=== PATIENT | male | born 1960 | race African-American/Black ===

== ENCOUNTER 2016-08-07 01:05 | Inpatient (IN) | payer OTHER ==
--- NOTE | 2016-07-28 16:16 | History & Physical Pre-Op ---
General Information and HPI MD Statement: I have seen and personally examined SACHI BEATTY and documented this H&P. The patient is a 55 year old M who presents with a patient stated chief complaint of right sided low back pain, occasionally radiating up his spine. It radiates occasionally to his right posterior thigh and into his knee. Source of Information: patient, old records Exam Limitations: no limitations History of Present Illness: Sachi is a 55-year-old -Togolese male who complains of right sided low back pain, occasionally radiating up his spine. It radiates occasionally to his right posterior thigh and into his knee. He denies any numbness/tingling or weakness in his lower extremities. He does occasionally experience hesitancy of urination but does attribute this to a Perdomo catheter that was placed during his hospitalization for a left CVA in 2011. Sachi denies any left-sided symptoms thus far. He states that his back pain on the right side is far more predominant than his leg pain. He states his symptoms are worse with standing. He has tried 3 epidural steroid injections, physical therapy, and anti- inflammatory medications which have given him minimal and temporary symptom relief. Given the fact that Sachi has severe degenerative disc disease at L5- S1 with facet arthrosis and foraminal stenosis and failure to respond to conservative measures, he wants nothing more to do with nonsurgical treatment. He has been consented for a posterior lumbar decompression fusion at L5-S1 with instrumentation and iliac crest bone grafting for 08/07/2016. Allergies/Medications Allergies: Coded Allergies: tomato (08/06/16) NSAIDS (Non-Steroidal Anti-Inflamma (Intermediate, GI upset 07/28/16) Home Med list Albuterol Sulfate (Ventolin Hfa) 90 MCG HFA.AER.AD 2 PUFF PO EVERY 4 HRS PRN ASTHMA (Reported) Aspirin (Aspirin*) 325 MG TABLET 1 TAB PO DAILY S/P [facility] (Reported) Esomeprazole (Nexium) 40 MG CAPSULE.DR 1 TAB PO DAILY GERD (Reported) Temazepam 30 MG CAPSULE 1 TAB PO NIGHTLY PRN SLEEP (Reported) Zolpidem Tartrate 10 MG TABLET 1 TAB PO NIGHTLY PRN SLEEP (Reported) Compliance With Home Meds: GOOD Past History Medical History Blood Transfusion Hx: No Neurological: CVA EENT: cyst on back of tongue Cardiovascular: NONE Respiratory: NONE Gastrointestinal: GERD Hepatic: NONE Renal: benign prost hyperplasia Musculoskeletal: chronic back pain, disk herniation, degen joint disease, osteoarthritis, sciatica, spinal stenosis Psychiatric: insomnia Endocrine: NONE Blood Disorders: NONE Cancer(s): NONE HEEL SHAPER/Reproductive: NONE Surgical History Pertinent Surgical History: appendectomy, s/p hemorrhoidectomy Past Family/Social History Family History Relations & Conditions if any FATHER (CVAMI). . MOTHER (CVABlood clot). . Psychosocial History Where Do You Live? Home Who Do You Live With? spouse Primary Language: Mosotho Smoking Status: Former Smoker (quit 5 years ago) ETOH Use: 2 six packs/week Illicit Drug Use: denies illicit drug use Employment History Employment: Employed Profession/Employer: [employer] Review of Systems Review of Systems Constitutional: Denies: no symptoms, see HPI. EENTM: Denies: no symptoms, see HPI. Cardiovascular: Denies: no symptoms, see HPI. Respiratory: Denies: no symptoms, see HPI. GI: Denies: no symptoms, see HPI. Genitourinary: Reports: hesitation. Musculoskeletal: Reports: see HPI, back pain, muscle pain, muscle stiffness. Skin: Denies: no symptoms, see HPI. Neurological/Psychological: Reports: pre-existing deficit, weakness (left hemiplegia). Hematologic/Endocrine: Denies: no symptoms, see HPI. Immunologic/Allergic: Denies: no symptoms, see HPI. All Other Systems: Reviewed and Negative Medication List Current Psychiatric Med(s): aspirin 325 mg daily Nexium 40 mg daily Zopiclone 7.5 mg daily at bedtime Vitamin C 500 mg daily Cod liver oil daily Exam & Diagnostic Data Physical Exam: weight: 180 pounds Height: 5 feet 8 inches Physical Exam General Appearance Alert, Oriented X3, Cooperative, No Acute Distress Skin No Rashes, No Breakdown, No Significant Lesion HEENT Atraumatic, PERRLA, EOMI, Mucous Membr. moist/pink Neck Supple, No JVD, No thryomegaly, +2 Carotid Pulse wo Bruit Lymphatic Cervical nl Cardiovascular Regular Rate, Normal S1, Normal S2, No Murmurs Lungs Clear to Auscultation Abdomen Normal Bowel Sounds, Soft, No Tenderness, No Masses Neurological Normal Speech, Normal Tone, Sensation Intact, Reflexes 2+, +4/5 LEFT LOWER EXTREMITY STRENGTH, + SLR ON RIGHT, SLIGHT LIMP WITH AMBULATION Extremities No Clubbing, No Cyanosis, No Edema, Normal Pulses, No Tenderness/ Swelling Vascular Normal Pulses, Pulses Symmetrical Assessment/Plan Assessment/Plan: assessment: 1. Degenerative disc disease at L5-S1 with facet arthrosis and foraminal stenosis. 2. History of CVA with left hemiplegia in 2011 3. GERD 4. Insomnia 5. Status post appendectomy 6. Status post hemorrhoidectomy 7. BPH 8. Cyst on back of tongue. Plan: Sachi is scheduled for a posterior lumbar decompression and fusion at L5 -S1 with instrumentation and iliac crest bone grafting for 08/07/2016. We discussed the pre-and postoperative course, follow-up care, and anticipated recovery. We also discussed the risks of surgery not to exclude , paralysis, infection, bleeding, continued pain, failure of the surgery, need for future surgery, DVT, vascular injury, CSF leak, and given these risks, he still wishes to proceed. We discussed the fact that there is no guarantee for the success or future success of the surgery but that 100% attempt will be made for full recovery. Any changes in this patient's plan is based on this patient's outpatient clinical presentation. As Ranked By This Provider Problem List: 1. GERD (gastroesophageal reflux disease) 2. BPH (benign prostatic hyperplasia) Attending MD Review Statement Attending Statement Attending MD Statement: examined this patient, discuss w/resident/PA/DIETETIC TECHNICIAN REGISTERED, agreed w/resident/PA/DIETETIC TECHNICIAN REGISTERED, reviewed images
[~2016-08-07] VITALS: Ht 172.7 cm; Wt 85.3 kg
[~2016-08-07 01:05] MED LIST: ASPIRIN325 M2 PO; NEXIUM40 M1 PO; TEMAZEPAM30 M1 PO; VENTOLIN HFA18 GM PO; ZOLPIDEM TARTRA10 M1 PO
--- NOTE | 2016-08-07 11:07 | Operative Report ---
Operative/Inv Procedure Report Surgery Date: 08/07/16 Name of Procedure: Posterior lumbosacral laminectomies decompression interdiscal cage placement L5- S1 pedicle screw placement bilateral L5-S1 lateral intertransverse process fusion autologous morselized bone graft L5-S1 harvesting of morselized iliac crest bone graft right posterior iliac crest Reconstruction of donor site with Master graft use of fluoroscopy. Pre-Operative Diagnosis: Degenerative disc disease facet disease and foraminal stenosis L5-S1 Post-Operative Diagnosis: Same Estimated Blood Loss: 150 Surgeon/Front Maker: JOSH EDEN,FREDY Mosher M.D. Anesthesia: general endotracheal tube Monitors: Electric nerve monitoring Operative/Procedure Note Note: After adequate general anesthesia the patient was placed in the prone position the back was sterilely prepped and draped along with iliac crest. An incision was made in the midline carried down bilaterally over the dorsal elements at the lumbosacral junction. The laminae were thinned with the bur there was severe overhang of the facets consistent with DJD at L5-S1. Laminectomies were performed bilaterally at L5-S1 the discectomy was performed after sharp venotomy and decompression of the disc space with removal of disc material using the curettes and the pituitary rongeur. The endplates were decorticated with the instrumentation in preparation for cage placement on the left side. An incision was made over the right posterior iliac crest and a subperiosteal dissection was carried laterally the Alla retractor was placed well away from the foramen. The curettes were used to collect cortical cancellus and cancellus morcellized bone. The wound was irrigated copiously packed with Master graft covered with Gelfoam and closed in layers with absorbable suture with gomez in the skin. The midline retractors were replaced and the wound was copiously irrigated corticotomies were created and L5 pedicles bilaterally and S1 pedicles bilaterally. The cage was packed with morselized bone graft and 8 mm cage was tamped into position and the L5-S1 disc space. The pedicles were identified with the probe tapped checked with a ball tip probe and pedicle screws were applied and L4 pedicles. The construct was checked in AP and lateral plane. Rods were placed compression applied and nuts were locked. The lateral intertransverse process region and facet joints were decorticated with the high- speed bur and pencil point bur. Bone graft was packed from L5-S1 as well as over the facet joints beneath the tube rods bilaterally. The wound was copiously irrigated Gelfoam was laid over the laminotomy site and a closure of the lumbodorsal fashion subcutaneous tissue was performed with absorbable suture. Skin was closed with gomez. After placement of sterile dressings the patient was log rolled off the operating table and taken to the recovery room on a stretcher.
--- NOTE | 2016-08-07 11:43 | RADIOLOGY REPORT ---
EXAMINATION: XR LUMBOSACRAL SPINE CLINICAL INFORMATION: Lumbar laminectomy L5-S1 with fusion in OR. COMPARISON: None TECHNIQUE: Fluoroscopic equipment was dedicated to the operating room for the performance of lumbar laminectomy at L5-S1 with fusion. 2 spot films of the lower lumbar spine in the frontal and lateral projection were obtained. FLUOROSCOPY TIME: 0.2 minutes. FINDINGS: Transpedicular screws are seen at the L5-S1 level. Near-anatomic alignment is seen. Multiple sponges with radiopaque markers are seen overlying the posterior soft tissues of the lower lumbar spine. IMPRESSION: L5-S1 lumbar spine laminectomy and fusion.
[2016-08-07 12:17] LABS: ABSOLUTE BASOPHIL COUNT 0 /CUMM (0.0-0.2); ABSOLUTE EOSINOPHIL COUNT 0.1 /CUMM (0.0-0.7); ABSOLUTE GRANULOCYTE CT 8.9 /CUMM (1.4-6.5); ABSOLUTE LYMPH COUNT 1.8 /CUMM (1.2-3.4); ABSOLUTE MONOCYTE COUNT 0.5 /CUMM (0.10-0.60); BASOPHIL % 0.2 % (0.0-2.0); EOSINOPHIL % 0.5 % (0-5); MEAN CORPUSCULAR HGB CONC 34.2 G/DL (33.0-37.0); MEAN CORPUSCULAR VOLUME 96.3 FL (80.0-94.0); MEAN PLATELET VOLUME 8.1 FL (7.4-10.4); PLATELET COUNT 213 /CUMM (130-400); RBC DISTRIBUTION WIDTH 12.6 % (11.5-14.5); RED BLOOD CELL CT 3.78 /CUMM (4.70-6.10)
[2016-08-07] MEDS ORDERED: TYLENOL325 M1 PO (12:23)
[2016-08-07] MEDS ORDERED: CALCIUM CARBON500 M2 PO (12:24)
[2016-08-07] MEDS ORDERED: BISAC-EVAC10 M1 PR (12:24)
[2016-08-07] MEDS ORDERED: DOCUSATE SODIU100 M3 PO (12:24)
[2016-08-07 12:25] LABS: GRANULOCYTE % 79.2 % (42.2-75.2); HEMATOCRIT 36.4 % (42-52); WHITE BLOOD CELL COUNT 11.2 /CUMM (4.8-10.8)
[2016-08-07] MEDS ORDERED: VITAMIN D31000 UNI2 PO (12:25)
[2016-08-07] MEDS ORDERED: MILK OF MA400 MG/52 PO (12:25)
[2016-08-07] MEDS ORDERED: ONE DAILY MULT1 EAC2 PO (12:26)
[2016-08-07] MEDS ORDERED: PERCOCET 5-3251 EACH PO (12:27)
--- NOTE | 2016-08-07 12:28 | Patient Discharge Instructions ---
Acute Coronary Syndrome Inclusion Criteria At DC or during hospital stay patient has or had the following: ACS DIAGNOSIS No Discharge Core Measures Meds if any: Prescribed or Continued at Discharge Meds if any: NOT Prescribed or Continued at Discharge Congestive Heart Failure Inclusion Criteria At DC or during hospital stay patient has or had the following: CHF DIAGNOSIS No Discharge Core Measures Meds if any: Prescribed or Continued at Discharge Meds if any: NOT Prescribed or Continued at Discharge Cerebrovascular accident Inclusion Criteria At DC or during hospital stay patient has or had the following: CVA/TIA Diagnosis No Discharge Core Measures Meds if any: Prescribed or Continued at Discharge Meds if any: NOT Prescribed or Continued at Discharge Venous thromboembolism Inclusion Criteria VTE Diagnosis No VTE Type NONE VTE Confirmed by (Test) NONE Discharge Core Measures - Per Current guidelines, there needs to be overlap - treatment for the first 5 days of Warfarin therapy. - If discharged on Warfarin prior to 5 days of - overlap therapy, the patient will need to be - assessed for post discharge needs including - *Post discharge parental anticoagulation - *Warfarin and/or parental anticoagulation education - *Follow up date to check INR post discharge At least 5 days overlap therapy as Inpatient No Meds if any: Prescribed or Continued at Discharge Note: Overlap Therapy is Warfarin and Anticoagulant Meds if any: NOT Prescribed or Continued at Discharge
[2016-08-07 14:30] VITALS: BP 110/68
--- NOTE | 2016-08-07 14:35 | PN- Orthopedic ---
Subjective Subjective: The patient was seen this afternoon postoperatively. He reports that his pain is under adequate control and only complains that his right cheek is sore. He denies any numbness, tingling, or weakness in his extremities. He has other complaints at the current time and denies any chest pain or difficulty breathing Objective Vital Signs and I&Os Intake & Output 08/07 1600 08/07 0800 08/07 0000 08/06 1600 08/06 0800 08/06 0000 Intake Total Output Total Balance Patient 188 lb Weight Vital signs: Blood pressure 110/60 pulse 65, temperature 90.8, O2 saturation 96% on room air I's and O's: Y5 100 ML's in of lactated Ringer's/100 out of urine Physical Exam: Gen.: Alert and obvious distress Skin: Warm and dry Cardiac: S1-S2 regular Pulmonary: Bilateral breath sounds are equal and decreased at bases Back: Surgical dressing is clean, dry, and intact. Extremities: Patient moves all 4 extremities with equal strength. Gross motor and sensory are intact. Bilateral lower extremities are warm without calf tenderness or significant edema. Assessment/Plan Assessment/Plan Assessment: 55-year-old male status post lumbar posterior stabilization and fusion L5 through S1 with iliac crest bone graft. Postoperatively patient is progressing as expected he has a nonfocal exam and his pain is under adequate control Plan: Out of bed with physical therapy Advance diet as tolerated Continue current pain regiment Strict I's and O's GI and DVT prophylaxis Resume home medications Core Measures/Miscellaneous Venous Thromboembolism VTE Risk Factors: Age > 40, Surgery VTE Contraindications: Severe Spine Trauma x4 wk VTE Prophylaxis Ordered Inpt: Mechanical (ALPS/TEDS) No Pharm VTE Prophylaxis D/T: Surgical Contraindication VTE Diagnosis: No Beta Sabino Is Beta Sabino a Home Med? No Antibiotics Is Patient on Antibiotics? Yes If Yes: prophylaxis
[2016-08-07 19:01] VITALS: BP 140/96
[2016-08-07 22:57] VITALS: BP 106/68
[2016-08-08 06:36] VITALS: BP 120/80
[2016-08-08 09:01] LABS: ABSOLUTE BASOPHIL COUNT 0 /CUMM (0.0-0.2); ABSOLUTE EOSINOPHIL COUNT 0 /CUMM (0.0-0.7); ABSOLUTE GRANULOCYTE CT 6.6 /CUMM (1.4-6.5); ABSOLUTE LYMPH COUNT 1.8 /CUMM (1.2-3.4); BASOPHIL % 0.2 % (0.0-2.0); EOSINOPHIL % 0.1 % (0-5); GRANULOCYTE % 69.9 % (42.2-75.2); HEMATOCRIT 35.6 % (42-52); MEAN CORPUSCULAR HGB 32.6 PG (27.0-31.0); MEAN CORPUSCULAR HGB CONC 33.6 G/DL (33.0-37.0); MEAN CORPUSCULAR VOLUME 97.1 FL (80.0-94.0); MEAN PLATELET VOLUME 8.9 FL (7.4-10.4); PLATELET COUNT 217 /CUMM (130-400); RBC DISTRIBUTION WIDTH 12.6 % (11.5-14.5); RED BLOOD CELL CT 3.67 /CUMM (4.70-6.10); WHITE BLOOD CELL COUNT 9.4 /CUMM (4.8-10.8)
--- NOTE | 2016-08-08 09:11 | PN- Orthopedic ---
Subjective Subjective: Patient reporting overnight insomnia as well as acid reflux. He feels that his pain has been controlled well. He has been OOB to void and on last two attempts was able to void without difficulty. He denies nausea but states that he did regurgitate his acid overnight. He denies chest pain, shortness of breath and difficulty breathing. Objective Vital Signs and I&Os Vital Signs Date Time Temp Pulse Resp B/P Pulse O2 O2 Flow FiO2 Ox Delivery Rate 08/08 0902 Room Air Room Air 08/08 0636 98.6 82 20 120/80 92 Room Air 08/07 2257 98.3 88 18 106/68 94 Room Air 08/07 1901 97.7 79 20 140/96 94 Room Air 08/07 1430 98.0 73 18 110/68 95 Room Air Intake & Output 08/08 1600 08/08 0800 08/08 0000 08/07 1600 08/07 0800 08/07 0000 Intake Total 920 1550 Output Total 1200 800 Balance -280 750 Intake, IV 800 800 Intake, Oral 120 750 Output, Urine 1200 800 Patient 188 lb Weight Physical Exam: General: Alert and oriented x3, no acute distress Cardiac: RRR, s1s2 Pulm: B CTA Abdomen: non-tender, non-distended Extremities: Moves all extremities, distal sensation intact. Motor 5/5 in plantar and dorsi flexion bilaterally. Skin warm and well perfused. DP pulses palpable. Bilateral calves soft and non-tender Surgical site: Low back: Dressing dry and intact. No surrounding erythema or swelling. No drain. Assessment/Plan Assessment/Plan This is a 55 year old male, POD 1, s/p L5-S1 martini/fusion with right sided posterio icbg, doing well -Change prilosec to nexium, patient states that it works better for his GERD -Change ambien to restoril -Continue current pain regimen -OOB with PT today -Home dose of ASA to start today -ALPS in while in bed -Diet as tolerated Core Measures/Miscellaneous Venous Thromboembolism VTE Risk Factors: Age > 40, Surgery VTE Contraindications: Severe Spine Trauma x4 wk VTE Prophylaxis Ordered Inpt: Mechanical (ALPS/TEDS) No Pharm VTE Prophylaxis D/T: Surgical Contraindication VTE Diagnosis: No Beta Sabino Is Beta Sabino a Home Med? No Antibiotics Is Patient on Antibiotics? Yes If Yes: prophylaxis
[2016-08-08 14:57] VITALS: BP 128/82
--- NOTE | 2016-08-08 19:53 | PN- Orthopedic ---
Subjective Subjective: Patient c/o nausea and vomiting. He has expected postop incisional pain. No leg pain, numbness, or new weakness. He is ambulating without difficulty. + Voiding. No CP, SOB, or fever/chills. Hgb: 12, HCT: 35.6 Review of Systems: Remarkable for the above complaints. Objective Vital Signs and I&Os Vital Signs Date Time Temp Pulse Resp B/P Pulse O2 O2 Flow FiO2 Ox Delivery Rate 08/08 1457 98.1 97 18 128/82 92 Room Air 08/08 0902 Room Air Room Air 08/08 0636 98.6 82 20 120/80 92 Room Air 08/07 2257 98.3 88 18 106/68 94 Room Air Intake & Output 08/08 1600 08/08 0800 08/08 0000 08/07 1600 08/07 0800 08/07 0000 Intake Total 876 256 3688 Output Total 475 1200 800 Balance 425 -280 750 Intake, IV 300 800 800 Intake, Oral 600 120 750 Output, Urine 475 1200 800 Patient 188 lb Weight Physical Exam General Appearance: well developed/nourished, alert, awake, mild distress Neck: normal inspection Respiratory: normal breath sounds, no respiratory distress Cardiovascular: regular rate/rhythm Peripheral Pulses: 2+ tibialis posterior (R), 2+ tibialis posterior (L), 2+ dorsalis pedis (R), 2+ dorsalis pedis (L) Abdomen: normal bowel sounds, soft, non-tender Back: Incision C/D/I Dressings changed. Extremities: normal capillary refill, Neurovascularly intact with no new or worsening gross motor or sensory loss. Neurologic/Psychiatric: no motor/sensory deficits, awake, alert, oriented x 3 Reflexes: 2+: knee (R), knee (L), ankle (R), ankle (L). Skin: intact, normal color Assessment/Plan Assessment/Plan Assessment: s/p PLDF L5-S1 with instr./ICBG with postop nausea Plan: Hold Percocet and continue with Morphine as needed for pain. Continue with anti-emetics. Ambulate with PT/Nursing Will follow-up in am to determine discharge plan. Continue IVF until nausea subsides Problem List: 1. BPH (benign prostatic hyperplasia) 2. GERD (gastroesophageal reflux disease) Core Measures/Miscellaneous Venous Thromboembolism VTE Risk Factors: Age > 40, Surgery VTE Contraindications: Severe Spine Trauma x4 wk VTE Prophylaxis Ordered Inpt: Mechanical (ALPS/TEDS) No Pharm VTE Prophylaxis D/T: Surgical Contraindication VTE Diagnosis: No Beta Sabino Is Beta Sabino a Home Med? No Antibiotics Is Patient on Antibiotics? Yes If Yes: prophylaxis Attending MD Review Statement Attending Statement Attending MD Statement: examined this patient, discuss w/resident/PA/INVENTORY AND PRICING ASSOCIATE, agreed w/resident/PA/INVENTORY AND PRICING ASSOCIATE
[2016-08-08 22:46] VITALS: BP 124/74
--- NOTE | 2016-08-09 09:02 | PN- Orthopedic ---
Subjective Subjective: POD #2 s/p lumbar laminectomy L5-S1 with ICBG. Complains of continued pain down right leg (had yesterday as well). Tolerating a regular diet without nausea or vomiting. Denies CP/SOB, F/C. Ambulating with assistance. Voiding spontaneously. Objective Vital Signs and I&Os Vital Signs Date Time Temp Pulse Resp B/P Pulse O2 O2 Flow FiO2 Ox Delivery Rate 08/08 2246 99.3 108 20 124/74 92 Room Air 08/08 1457 98.1 97 18 128/82 92 Room Air 08/08 0902 Room Air Room Air Intake & Output 02/ 1600 02 0800 08/09 0000 08/08 1600 08/08 0800 08/08 0000 Intake Total 120 120 530 342 5905 Output Total 475 1200 800 Balance 120 120 425 -280 750 Intake, IV 300 800 800 Intake, Oral 120 120 600 120 750 Output, Urine 475 1200 800 Physical Exam: Gen: AAox3 in NAD Cor: S1+S2+ Lungs: CTA dick Abd: soft, NT, ND, +BSx4 Back: dressings removed. Incisions x2 C/D/I with gomez. No surrounding erythema or drainage. Mild amount of ecchymosis noted to right diagonal incision. Ext: Palpable DP pulses dick. Feet warm. Sensation/motor exam grossly intact. Results Last 48 Hours of Labs: Laboratory Tests 08/08 01/ 0805 1210 Hematology CBC w Diff NO MAN DIFF REQ NO MAN DIFF REQ WBC (4.8 - 10.8 /CUMM) 9.4 11.2 H RBC (4.70 - 6.10 /CUMM) 3.67 L 3.78 L Hgb (14.0 - 18.0 G/DL) 12.0 L 12.5 L Hct (42 - 52 %) 35.6 L 36.4 L MCV (80.0 - 94.0 FL) 97.1 H 96.3 H MCH (27.0 - 31.0 PG) 32.6 H 33.0 H RDW (11.5 - 14.5 %) 12.6 12.6 Plt Count (130 - 400 /CUMM) 217 213 MPV (7.4 - 10.4 FL) 8.9 8.1 Gran % (42.2 - 75.2 %) 69.9 79.2 H Lymphocytes % (20.5 - 51.1 %) 18.9 L 16.0 L Monocytes % (1.7 - 9.3 %) 10.9 H 4.1 Eosinophils % (0 - 5 %) 0.1 0.5 Basophils % (0.0 - 2.0 %) 0.2 0.2 Absolute Granulocytes (1.4 - 6.5 /CUMM) 6.6 H 8.9 H Absolute Lymphocytes (1.2 - 3.4 /CUMM) 1.8 1.8 Absolute Monocytes (0.10 - 0.60 /CUMM) 1.0 H 0.5 Absolute Eosinophils (0.0 - 0.7 /CUMM) 0 0.1 Absolute Basophils (0.0 - 0.2 /CUMM) 0 0 PUBS MCHC (33.0 - 37.0 G/DL) 33.6 34.2 02/16 UNK Urines Urine Color (YEL,AMB,STR) YEL Urine Clarity (CLEAR) CLEAR Urine pH (5.0 - 8.0) 6.0 Ur Specific [place] (1.001 - 1.035) 1.015 Urine Protein (NEG,<30 MG/DL) NEG Urine Ketones (NEG) NEG Urine Nitrite (NEG) NEG Urine Bilirubin (NEG) NEG Urine Urobilinogen (0.1 - 1.0 EU/dl) 1.0 Ur Leukocyte Esterase (NEG) NEG Ur Microscopic EXAM NOT REQUIRED Urine Hemoglobin (NEG) NEG Urine Glucose (N MG/DL) NEG Assessment/Plan Assessment/Plan A: POD #2 s/p lumbar laminectomy L5-S1; AVSS. Plan: Daily dry dressing changes to lumbar incisions. Continue pain control, although may need to change to Dilaudid. D/C morphine. Keep with PO pain medications today. OOB and ambulate as tolerated. Likely discharge later today vs tomorrow morning. Core Measures/Miscellaneous Venous Thromboembolism VTE Risk Factors: Age > 40, Surgery VTE Contraindications: Severe Spine Trauma x4 wk VTE Prophylaxis Ordered Inpt: Mechanical (ALPS/TEDS) No Pharm VTE Prophylaxis D/T: Surgical Contraindication VTE Diagnosis: No Beta Sabino Is Beta Sabino a Home Med? No Antibiotics Is Patient on Antibiotics? Yes If Yes: prophylaxis
[2016-08-09 09:27] VITALS: BP 124/74
--- NOTE | 2016-08-09 11:11 | Surg Short-stay <48hrs Dis Sum ---
See Addendum Visit Information Visit Dates Admission Date: 08/07/16 Discharge Date: 08/09/16 Surgical Short Stay DC Summary Admission Diagnosis: Degenerative disc disease facet disease and foraminal stenosis L5-S1 Final Diagnosis: same Procedure(s): Posterior lumbosacral laminectomies decompression interdiscal cage placement L5- S1 pedicle screw placement bilateral L5-S1 lateral intertransverse process fusion autologous morselized bone graft L5-S1 harvesting of morselized iliac crest bone graft right posterior iliac crest Reconstruction of donor site with Master graft Summary/Significant Findings: Mr. Schumacher is a 55 year old male who was admitted on 08/07/16 and underwent a posterior lumbar decompression with cage L5-S1. He did well post operatively, and his pain was well controlled. He was able to void spontaneously and tolerate a diet. On POD #2, he was stable for discharge with outpatient follow- up with Dr. Martín Herrera. Condition at Discharge: stable Discharge Disposition: home or self care Discharge instructions provided to patient/family: Yes Post discharge follow-up plan: Dr. Herrera= patient to call for follow up appointment at earliest convenience
--- NOTE | 2016-08-09 18:09 | NUR ---
1745- PT COMPLAINING HE HAS NOT HAD A BM SINCE 08/05/16. COLACE, SUPPOSITORY, FLEET ENEMA AND MAGNESIUM CITRATE GIVEN OVER THE COURSE OF THE DAY. PT PASSING FLATUS, BUT STATES HE HAS NOT HAD A BM. SURG MERON CHRIS KEPT AWARE OF ABOVE THROUGHOUT THE DAY. DISCHARGE ORDER IN PLACE, PENDING BM SINCE PT DOES NOT WANT TO BE DISCHARGED UNTIL HE HAS A BM. SURG MERON CHRIS TO ASSESS PT AT BEDSIDE. 1800- SURG MERON CHRIS TO ORDER 2 ADDITIONAL SUPPOSITORIES, TO BE GIVEN AT THE SAME TIME.
== END 2016-08-09 19:40 | DRG 460 ==
LOC: ENRESERVDT → ENRESERVTM → ENPENDDIS 01:05 → SDA 01:05 → 2NA 13:56
PROVIDERS: Orthopaedic Surgery Orthopaedic Surgery of the Spine; ADMIT Orthopaedic Surgery Orthopaedic Surgery of the Spine
PROC: 0SB40ZZ Excision of Lumbosacral Disc, Open Approach (ICD-10-PCS; principal; 2016-08-07)
PROC: 0SG30AJ Fusion of Lumbosacral Joint with Interbody Fusion Device, Posterior Approach, Anterior Column, Open Approach (ICD-10-PCS; 2016-08-07)
PROC: 0QB00ZZ Excision of Lumbar Vertebra, Open Approach (ICD-10-PCS; 2016-08-07)
DX: M48.07 Spinal stenosis, lumbosacral region (principal); M51.37 Other intervertebral disc degeneration, lumbosacral region
CPT/HCPCS: 2NAP; 36415; 72100; 81003; 97116-GO; 97161-GP; 97530-GO; C1713; J0131; J0690; J2405; J3250; J3490; J7120

== ENCOUNTER 2016-08-13 05:06 | Emergency (ER) | payer OTHER ==
[~2016-08-13] VITALS: Ht 172.7 cm; Wt 85.3 kg
[~2016-08-13 05:06] MED LIST changes: +BISAC-EVAC10 M1 PR; +CALCIUM CARBON500 M2 PO; +DOCUSATE SODIU100 M3 PO; +MILK OF MA400 MG/52 PO; +ONE DAILY MULT1 EAC2 PO; +PERCOCET 5-3251 EACH PO; +TYLENOL325 M1 PO; +VITAMIN D31000 UNI2 PO
[2016-08-13 05:21] VITALS: BP 144/85
--- NOTE | 2016-08-13 05:52 | ED GI/GU/ABDOMINAL COMPLAINT ---
History of Present Illness General Chief Complaint: Male Genitourinary Problems Stated Complaint: URINARY RETENSION S/P BACK SURGERY LAST WK Source: patient Exam Limitations: no limitations Vital Signs & Intake/Output Vital Signs & Intake/Output Vital Signs Date Time Temp Pulse Resp B/P Pulse O2 O2 Flow FiO2 Ox Delivery Rate 08/13 0551 98 Room Air 08/13 520 96.8 77 18 144/85 96 Room Air Allergies Coded Allergies: tomato (08/06/16) NSAIDS (Non-Steroidal Anti-Inflamma (Intermediate, GI upset 07/28/16) Reconcile Medications Acetaminophen (Tylenol) 325 MG TABLET 650 MG PO Q4P PRN TEMP > 101.5 Albuterol Sulfate (Ventolin Hfa) 90 MCG HFA.AER.AD 2 PUFF PO EVERY 4 HRS PRN ASTHMA (Reported) Aspirin (Aspirin*) 325 MG TABLET 1 TAB PO DAILY S/P [facility] (Reported) Bisacodyl (Bisac-Evac) 10 MG SUPP.RECT 10 MG [place] DAILY NEEDED PRN CONSTIPATION Calcium Carbonate 500 MG CALCIUM (1,250 MG) TABLET 600 MG PO BID [facility] Cholecalciferol (Vitamin D3) 1,000 UNIT TABLET 1,000 IU PO DAILY [facility] Docusate Sodium 100 MG CAPSULE 100 MG PO TID CONSTIPATION Esomeprazole (Nexium) 40 MG CAPSULE.DR 1 TAB PO DAILY GERD (Reported) Magnesium Hydroxide (Milk Of Magnesia) 400 MG/5 ML ORAL.SUSP 30 ML PO AT BEDTIME PRN CONSTIPATION Multivitamin (One Daily Multivitamin) 1 EACH TABLET 1 TAB PO DAILY [facility] Oxycodone HCl/Acetaminophen (Percocet 5-325 MG Tablet) 5 MG-325 MG TABLET 2 TAB PO Q4P PRN PAIN SCALE 4-6 (MODERATE) 1-2 TABS PO Q 4-6 HRS PRN PAIN Temazepam 30 MG CAPSULE 1 TAB PO NIGHTLY PRN SLEEP (Reported) Zolpidem Tartrate 10 MG TABLET 1 TAB PO NIGHTLY PRN SLEEP (Reported) Triage Note: PT TO ED COMPLAINING OF INABILITY TO URINATE SINCE 10PM LAST NIGHT. PT STATES THAT HE HAD BACK SURGEY LAST THURSDAY. PT STATES HE RECENTLY HAD PAIN MEDICATIONS CHANGED AND IS CURRENTLY TAKING HYDROMORPONE FOR PAIN. PT DENIES PAIN. PT ALERT, ORIENTED AND DIAPHORETIC IN TRIAGE. Triage Nurses Notes Reviewed? yes HPI: Patient presents for evaluation of acute urinary retention. Patient states the last time he was able to empty his bladder was about 10:00 last night. Patient is taking hydromorphone as result of back surgery. Patient denies any associated fever or chills. Patient has had trouble urinating in the past secondary to an enlarged prostate. He was experiencing a severe suprapubic abdominal pressure. Past History Travel History Traveled to [place] past 21 day No Medical History Any Pertinent Medical History? 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 . MOTHER (CVABlood clot). . Hx Contributory? No Review of Systems Review of Systems Constitutional: Reports: no symptoms. EENTM: Reports: no symptoms. Respiratory: Reports: no symptoms. Cardiovascular: Reports: no symptoms. GI: Reports: no symptoms. Genitourinary: Reports: see HPI. Musculoskeletal: Reports: no symptoms. Skin: Reports: no symptoms. Neurological/Psychological: Reports: no symptoms. Hematologic/Endocrine: Reports: no symptoms. Immunologic/Allergic: Reports: no symptoms. All Other Systems: Reviewed and Negative Physical Exam Physical Exam Gastrointestinal: see below Comments: Gen.: Well-nourished, well-developed, no acute respiratory distress. Head: Normocephalic, atraumatic. Eyes: Normal inspection bilaterally Ears: Normal inspection bilaterally Nose: Normal inspection Throat/mouth : Moist mucosa Neck: Supple, full range of motion, no goiter Heart: Regular rate and rhythm, no murmurs rubs or gallops Lungs: Clear to auscultation bilaterally with normal air entry Chest: Nontender Back: Decreased range of motion secondary to surgery Abdomen: Soft, suprapubic abdominal tenderness without rebound or guarding, nondistended, normal bowel sounds Extremities: Normal range of motion grossly, equal radial pulses, no cyanosis clubbing or edema Neurologic: Cranial nerves grossly intact, speech is clear Skin: warm and dry Psychiatric: Calm, cooperative, no apparent delusions or hallucinations Core Measures ACS in differential dx? No Severe Sepsis Present: No Septic Shock Present: No Progress Differential Diagnosis: urinary retention Plan of Care: Orders Procedure Date/time Status Perdomo, Insertion/Removal/Asses 08/13 543 Active URINALYSIS 08/13 543 Active Laboratory Tests 08/13/16 0545: Urine Color Pending, Urine Clarity Pending, Urine pH Pending, Ur Specific [place] Pending, Urine Protein Pending, Urine Ketones Pending, Urine Nitrite Pending, Urine Bilirubin Pending, Urine Urobilinogen Pending, Ur Leukocyte Esterase Pending, Ur Microscopic Pending, Urine Hemoglobin Pending, Urine Glucose Pending Initial ED EKG: none Comments: 08/13/2016 6:06:11 AM Shubham is feeling much better after the placement of the Perdomo catheter. He wishes to have it removed as he will be flying back to his home in [facility]. I advised him that he might retain urine again. He understands this but does not wish to have the catheter stay in place. He denies back pain at this time. He denies lower extremity weakness or saddle paresthesias. He feels that it was the medications that cause him to retain urine. At this point there seems to be no indication of a postoperative complication. Departure Departure Disposition: HOME OR SELF CARE Condition: Stable Clinical Impression Primary Impression: Acute urinary retention Referrals: UNKNOWN (PCP/Family) Additional Instructions: Follow-up with your primary care doctor upon return to your home. Return if any concerns or sudden worsening. Departure Forms: Customer Survey General Discharge Information
== END 2016-08-13 06:20 ==
LOC: ERH 05:06
DX: R33.9 Retention of urine, unspecified (principal)
CPT/HCPCS: 81001

== ENCOUNTER 2016-08-13 12:22 | Emergency (ER) | payer OTHER ==
[~2016-08-13] VITALS: Ht 172.7 cm; Wt 85.3 kg
[2016-08-13 12:33] VITALS: BP 147/87
--- NOTE | 2016-08-13 12:58 | ED GI/GU/ABDOMINAL COMPLAINT ---
History of Present Illness General Chief Complaint: Male Genitourinary Problems Stated Complaint: URINE RETENTION Source: patient, family, old records Exam Limitations: no limitations Vital Signs & Intake/Output Vital Signs & Intake/Output Vital Signs Date Time Temp Pulse Resp B/P Pulse O2 O2 Flow FiO2 Ox Delivery Rate 08/13 1233 98.3 97 18 147/87 99 Room Air Allergies Coded Allergies: tomato (08/06/16) NSAIDS (Non-Steroidal Anti-Inflamma (Intermediate, GI upset 07/28/16) Reconcile Medications Acetaminophen (Tylenol) 325 MG TABLET 650 MG PO Q4P PRN TEMP > 101.5 Albuterol Sulfate (Ventolin Hfa) 90 MCG HFA.AER.AD 2 PUFF PO EVERY 4 HRS PRN ASTHMA (Reported) Aspirin (Aspirin*) 325 MG TABLET 1 TAB PO DAILY [facility] (Reported) Bisacodyl (Bisac-Evac) 10 MG SUPP.RECT 10 MG AL DAILY NEEDED PRN CONSTIPATION Calcium Carbonate 500 MG CALCIUM (1,250 MG) TABLET 600 MG PO BID [facility] Cholecalciferol (Vitamin D3) 1,000 UNIT TABLET 1,000 IU PO DAILY [facility] Docusate Sodium 100 MG CAPSULE 100 MG PO TID CONSTIPATION Esomeprazole (Nexium) 40 MG CAPSULE.DR 1 TAB PO DAILY GERD (Reported) Magnesium Hydroxide (Milk Of Magnesia) 400 MG/5 ML ORAL.SUSP 30 ML PO AT BEDTIME PRN CONSTIPATION Multivitamin (One Daily Multivitamin) 1 EACH TABLET 1 TAB PO DAILY [facility] Oxycodone HCl/Acetaminophen (Percocet 5-325 MG Tablet) 5 MG-325 MG TABLET 2 TAB PO Q4P PRN PAIN SCALE 4-6 (MODERATE) 1-2 TABS PO Q 4-6 HRS PRN PAIN Temazepam 30 MG CAPSULE 1 TAB PO NIGHTLY PRN SLEEP (Reported) Zolpidem Tartrate 10 MG TABLET 1 TAB PO NIGHTLY PRN SLEEP (Reported) Triage Note: 55 Y/O MALE SENT BY DR MORENO FOR EVAL OF URINARY RETENTION SINCE THIS AM. HAD BACK SURGERY AND WAS UNABLE TO VOID; SEEN IN ED FOR SAME THIS AM AND DECLINED DISCHARGE WITH CHAO/LEG BAG. RETURNS FOR CONTINUED URINARY RETENTION. PT DUE TO TRAVEL TODAY. STATES HE VOIDED "A LOT" PRIOR TO COMING INTO TRIAGE. AGREEABLE TO BE BE EVAL'D WHILE HERE DUE TO TRAVELING LATER TODAY. Triage Nurses Notes Reviewed? yes Onset: Just prior to arrival Duration: hour(s):, better, constant Timing: recent history Quality/Severity: fullness, severe Location: suprapubic Radiation: no radiation Activities at Onset: none Prior Abdominal Problems: similar symptoms Past Sexual History: Unobtainable at this time Modifying Factors: Improves With: urinating. Associated Symptoms: abdominal pain, sweating HPI: The patient reports having issues with micturition since having a stroke developing prostatic hypertrophy. Patient had recent back surgery and took too many Dilaudid pills yesterday developing urinary retention last night catheterized the ED and felt better refusing indwelling Chao catheter. He was unable to void several hours prior to admission presented diaphoretic and in the waiting was finally able to pass his urine. He denies fever chills nausea vomiting diarrhea chest pain cough shortness of breath headache dysuria rash bleeding change in motor sensory function back pain. Past History Travel History Traveled to [facility] past 21 day No Medical History Any Pertinent Medical History? 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 . MOTHER (CVABlood clot). . Hx Contributory? No Review of Systems Review of Systems Constitutional: Reports: see HPI, diaphoresis. EENTM: Reports: no symptoms. Respiratory: Reports: no symptoms. Cardiovascular: Reports: no symptoms. GI: Reports: no symptoms. Genitourinary: Reports: see HPI. Musculoskeletal: Reports: no symptoms. Skin: Reports: no symptoms. Neurological/Psychological: Reports: no symptoms. Hematologic/Endocrine: Reports: no symptoms. Immunologic/Allergic: Reports: no symptoms. All Other Systems: Reviewed and Negative Physical Exam Physical Exam General Appearance: well developed/nourished, alert, awake, anxious, mild distress Head: atraumatic, normal appearance Eyes: Bilateral: normal appearance, PERRL, EOMI, normal inspection. Ears, Nose, Throat, Mouth: hearing grossly normal, moist mucous membrane Neck: normal inspection, supple, full range of motion, normal alignment Respiratory: normal breath sounds, chest non-tender, no respiratory distress, quiet respiration, lungs clear Cardiovascular: regular rate/rhythm, normal peripheral pulses, norml femoral pulses equa Peripheral Pulses: 4+ carotid (R), 4+ carotid (L) Gastrointestinal: normal bowel sounds, soft, non-tender, no organomegaly Male Genitals: normal genitalia Back: normal inspection, normal range of motion Extremities: normal range of motion Neurologic/Psych: no motor/sensory deficits, awake, alert, oriented x 3, normal gait, normal mood/affect Skin: intact, normal color, diaphoresis Comments: Bladder scan 0 mL Core Measures ACS in differential dx? No Severe Sepsis Present: No Septic Shock Present: No Progress Differential Diagnosis: urinary retention Plan of Care: bladder scan Initial ED EKG: none Departure Departure Time of Disposition: 1257 Disposition: HOME OR SELF CARE Condition: Stable Clinical Impression Primary Impression: Acute urinary retention Referrals: UNKNOWN (PCP/Family) Departure Forms: Customer Survey General Discharge Information
== END 2016-08-13 13:01 ==
LOC: ERH 12:22
DX: R33.9 Retention of urine, unspecified (principal)

== ENCOUNTER 2017-09-24 01:06 | Inpatient (IN) | payer OTHER ==
--- NOTE | 2017-09-14 13:26 | History & Physical Pre-Op ---
General Information and HPI MD Statement: I have seen and personally examined SHUBHAM BEATTY and documented this H&P. The patient is a 57 year old M who presented with a patient stated chief complaint of bilateral low back pain. Source of Information: patient, old records Exam Limitations: no limitations History of Present Illness: Shubham is a 57-year-old gentleman who is complaining of progressively worsening bilateral low back pain that is worse when standing for prolonged periods. He is status post posterior lumbar decompression and fusion L5-S1 with instrumentation from July,. 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 Shubham states his pain is worse in the morning upon awakening and he does occasionally experience right leg numbness and pain in his posterior thigh and into his foot with cramping. He denies any weakness in his lower extremities nor any bowel or bladder changes. He does rate his pain between a 5-7/10 in intensity. Due to the fact that Shubham's symptoms are not improving, and with his CT scan findings, he wants nothing more to do with nonsurgical treatment. He has been consented for a revision posterior lumbar decompression and fusion with removal of hardware, inspection of fusion mass, revision laminectomy at L5-S1, and possible reinstrumentation on 09/24/2017. Allergies/Medications Allergies: Coded Allergies: tomato (Mild, GI upset 09/14/17) hydromorphone (From DILAUDID) (Severe, urinary retention 09/14/17) NSAIDS (Non-Steroidal Anti-Inflamma (Intermediate, GI upset 07/28/16) Home Med list Calcium Carbonate 500 MG CALCIUM (1,250 MG) TABLET 600 MG PO BID [facility] Cholecalciferol (Vitamin D3) 1,000 UNIT TABLET 1,000 IU PO DAILY [facility] Esomeprazole (Nexium) 40 MG CAPSULE.DR 1 TAB PO DAILY GERD (Reported) Multivitamin (One Daily Multivitamin) 1 EACH TABLET 1 TAB PO DAILY [facility] Zolpidem Tartrate 10 MG TABLET 1 TAB PO NIGHTLY PRN SLEEP (Reported) Compliance With Home Meds: GOOD Past History Medical History Neurological: CVA EENT: cyst on back of tongue Cardiovascular: NONE Respiratory: asthma Gastrointestinal: GERD Hepatic: NONE Renal: benign prost hyperplasia Musculoskeletal: chronic back pain, disk herniation, degen joint disease, osteoarthritis, sciatica, spinal stenosis Psychiatric: insomnia Endocrine: NONE Blood Disorders: NONE Cancer(s): NONE DIRECTOR OF MATERNITY SERVICES/Reproductive: NONE Surgical History Pertinent Surgical History: appendectomy, spinal fusion, s/p hemorrhoidectomy, s /p PLDF L5-S1 with Instrumentation and Iliac Crest Bone Grafting 07/2106 Past Family/Social History Family History Relations & Conditions if any FATHER (CVAMI). . MOTHER (CVABlood clot). . Psychosocial History Where Do You Live? Home Who Do You Live With? spouse Primary Language: Korean Smoking Status: Former Smoker (quit 5 years sgo) ETOH Use: 1-2 beers/day Illicit Drug Use: denies illicit drug use Other Social History: (Hiral). No children. 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 Exam & Diagnostic Data Last 24 Hrs of Vital Signs/I&O Intake & Output 09/24 0800 09/24 0000 09/23 1600 Intake Total Output Total Balance Patient 189 lb Weight Physical Exam: Height: 5'8" Weight: 189lbs. Physical Exam General Appearance Alert, Oriented X3, Cooperative, No Acute Distress Skin No Rashes, No Breakdown, No Significant Lesion HEENT Atraumatic, PERRLA, EOMI, Mucous Membr. moist/pink Neck Supple, No JVD, No thryomegaly, +2 Carotid Pulse wo Bruit Lymphatic Cervical nl Cardiovascular Regular Rate, Normal S1, Normal S2, No Murmurs Lungs Clear to Auscultation Abdomen Normal Bowel Sounds, Soft, No Tenderness, No Masses Neurological Normal Speech, Strength at 5/5 X4 Ext, Normal Tone, Sensation Intact, tight hamstrings bilaterally, Pain in lumbar spine with lateral bending bilaterally and with extension, Pain to palpation of paraspinal muscles of lumbar spine Extremities No Clubbing, No Cyanosis, No Edema Vascular Normal Pulses Last 24 Hrs of Labs/Jon: Laboratory Tests 09/24/17 0640: Urine Color YEL, Urine Clarity CLEAR, Urine pH 6.0, Ur Specific [place] >= 1.030 , Urine Protein NEG, Urine Ketones NEG, Urine Nitrite NEG, Urine Bilirubin NEG, Urine Urobilinogen 0.2, Ur Leukocyte Esterase NEG, Ur Microscopic EXAM NOT REQUIRED, Urine Hemoglobin NEG, Urine Glucose NEG Medication List Current Psychiatric Med(s): ASA 325mg daily- stopped 09/10 Jerry Carias daily Zoplicone 7.5mg q hs sleep Nexium 40mg daily Vitamin C 500mg daily- stopped 09/10 Assessment/Plan Assessment/Plan: Assessment: L4-5 Facet Impingement and suspected left L5-S1 pseudoarthrosis Plan: Shubham is scheduled for a revision posterior lumbar decompression and fusion with removal of hardware, inspection of fusion mass, revision laminectomy at L5-S1 and possible reinstrumentation on 09/24/2017. We discussed the procedure in full detail as well as the pre-and postoperative course, follow-up care, and anticipated recovery. We also discussed the do's and notes and postoperative discharge instructions. We discussed the alternatives, benefits, and risks, not to exclude, , paralysis, infection, bleeding, continued pain, failure of the surgery, need for future surgery, DVT, vascular injury, CSF leak, etc., and given these risks, he still wishes to proceed. He has been seen by Dr. Mena for preoperative clearance. He has been advised to stop his aspirin and vitamin C as of 09/10/2017. We discussed the use of oxycodone versus Tylenol No. 3 as well as morphine for postoperative pain control. Shubham has asked that sutures be used for skin closure. Any changes in this patient's plan is based on this patient's outpatient clinical presentation. As Ranked By This Provider Problem List: 1. GERD (gastroesophageal reflux disease) 2. BPH (benign prostatic hyperplasia) 3. Asthma 4. History of CVA with residual deficit Copies To: Javier EDEN,Martín Attending MD Review Statement Attending Statement Attending MD Statement: examined this patient, discuss w/resident/PA/PAD ASSEMBLER, agreed w/resident/PA/PAD ASSEMBLER, discussed with family, reviewed images
[~2017-09-24] VITALS: Ht 170.2 cm; Wt 85.7 kg
--- NOTE | 2017-09-24 10:04 | Operative Report ---
Operative/Inv Procedure Report Surgery Date: 09/24/17 Name of Procedure: Lumbosacral inspection of fusion mass L5-S1 laminectomies L5-S1 removal of hardware pedicle screws L5-S1. Placement of 4 pedicle screws bilaterally L5-S1. Lateral intertransverse process fusion with locally harvested bone L5-S1. Use of fluoroscopy. Pre-Operative Diagnosis: Nonunion loose hardware L5-S1 with radiculopathy. Post-Operative Diagnosis: Same Estimated Blood Loss: 50ml to 100ml Surgeon/Director Community Organization: Javier EDEN,Martín Mosher M.D. Anesthesia: general endotracheal tube Operative/Procedure Note Note: After adequate general anesthesia was achieved the patient was placed in the prone position. The back was sterilely prepped and draped. The previous incision was excised sharply. The dissection was carried to the dorsal elements and laterally over the hardware. Scar tissue was debrided with the curettes and Leksell. The fusion was inspected the hardware was loose and easily removed bilaterally. There is significant soft tissue beneath the locking caps on all screws. The pedicle screw holes were checked with a ball tip probe and found to be entirely within bone. Theintertransverse process region was evaluated and there was multiple areas of motion and nonunion. The previous laminectomies were enlarged and the laminectomy was performed between L5 and S1. Significant quantities of bone graft were harvested with the Leksell locally. The screw holes were all tapped enlarging those on the left 8.5 screws and those on the right and 9.5 screws. The area of contact between the inferior articular processes of L5 and the pedicle screws was avoided with lateral placement of the pedicle screw tulips. Excellent purchase was achieved in all 4 screws. The rods were placed and locked into position and the construct was checked in AP and lateral plane and found to be appropriate using fluoroscopy. The area of the facets were decorticated with the pencil point bur morselized bone generated with the high-speed bur was packed between the inner transverse process space at L5-S1 as well as beneath the rods over the area of the facet joints and covered in Gelfoam degeneration of the bone graft wound was copiously irrigated. Following degeneration of the bone graft a closure of the lumbodorsal fascia and subcutaneous tissue was performed with absorbable suture the skin was closed with nylon. Sterile dressings were applied and the patient was transferred to the stretcher. Findings: Nonunion L5-S1 loose hardware.
[2017-09-24] MEDS ORDERED: DULCOLAX10 M1 RC (11:31)
[2017-09-24] MEDS ORDERED: COLACE100 M1 PO (11:31)
[2017-09-24] MEDS ORDERED: PERCOCET 5-3251 EACH PO (11:31)
[2017-09-24] MEDS ORDERED: TYLENOL EXTRA500 M2 PO (11:31)
[2017-09-24] MEDS ORDERED: MILK OF MA400 MG/52 PO (11:31)
--- NOTE | 2017-09-24 11:54 | Cons- Medical ---
Yenny Heath 09/24/17 1151: General Information and HPI Consulting Request Date of Consult: 09/24/17 Requested By: Martín Herrera MD Reason for Consult: Co-management Source of Information: patient, old records Exam Limitations: no limitations History of Present Illness: is a 57 yo man with PMHx. of CVA, GERD, asthma, BPH, chronic back pain, disc herniation, osteoarthritis, sciatica, spinal stenosis, insomnia presented to [facility] for a revision laminectomy at L5-S1. He got a procedure today which is described by the surgeon as Lumbosacral inspection of fusion mass L5-S1 laminectomies L5-S1 removal of hardware pedicle screws L5-S1. Placement of 4 pedicle screws bilaterally L5-S1. Lateral intertransverse process fusion with locally harvested bone L5-S1. Use of fluoroscopy. Medical team was consulted for comanagement. Patient tolerated the procedure well, the only complaint that he has is post operative pain, he denies any chest pain, shortness of breath, dizziness, abdominal pain, and other review of system was negative. Allergies/Medications Allergies: Coded Allergies: tomato (Mild, GI upset 09/14/17) hydromorphone (From DILAUDID) (Severe, urinary retention 09/14/17) NSAIDS (Non-Steroidal Anti-Inflamma (Intermediate, GI upset 07/28/16) Current Medications: Current Medications Sig/Roxana Start time Last Medication Dose Route Stop Time Status Admin Acetaminophen 650 MG Q4P PRN 09/24 1100 AC PO Bisacodyl 10 MG DAILY NEEDED PRN 09/24 1100 AC MD Calcium 600 MG BID 09/24 2200 AC PO Cefazolin Sodium 1,000 MG IQ8 09/24 1600 AC IV 09/25 0801 Cefazolin Sodium 2,000 MG ONCE 09/24 0000 NR IV 09/24 2359 Cholecalciferol 1,000 IU DAILY 09/25 1000 AC PO Docusate Sodium 100 MG TID 09/24 1600 AC PO Lactated Ringer's 1,000 ML Q10H 09/24 1115 AC IV Lorazepam 0.5 MG Q4P PRN 09/24 1130 AC PO 10/01 1129 Magnesium Hydroxide 30 ML Q8P PRN 09/24 1115 AC PO Morphine Sulfate 1 MG Q3P PRN 09/24 1100 AC IV Multivitamins 1 TAB DAILY 09/25 1000 AC Therapeutic PO Omeprazole 40 MG DAILY AC 09/25 0700 AC PO Ondansetron HCl 4 MG Q6P PRN 09/24 1100 AC IV Oxycodone/ 1 TAB Q4P PRN 09/24 1100 AC Acetaminophen PO Oxycodone/ 2 TAB Q4P PRN 09/24 1100 AC Acetaminophen PO Trimethobenzamide HCl 200 MG Q6P PRN 09/24 1100 AC IM Review of Systems Review of Systems Constitutional: Reports: no symptoms. EENTM: Reports: no symptoms. Cardiovascular: Reports: no symptoms. Respiratory: Reports: no symptoms. GI: Reports: no symptoms. Genitourinary: Reports: no symptoms. Musculoskeletal: Reports: back pain. Skin: Reports: no symptoms. Neurological/Psychological: Reports: no symptoms. Hematologic/Endocrine: Reports: no symptoms. 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 . MOTHER (CVABlood clot). . Psychosocial History Where Do You Live? Home Who Do You Live With? spouse Primary Language: Tamazight Smoking Status: Former Smoker (quit 5 years sgo) ETOH Use: 1-2 beers/day Illicit Drug Use: denies illicit drug use Other Social History: (Hiral). No children. Employment History Employment: Employed Profession/Employer: [employer]- Light duty Exam & Diagnostic Data Last 24 Hrs of Vital Signs/I&O Vital Signs Date Time Temp Pulse Resp B/P B/P Pulse O2 O2 Flow FiO2 Mean Ox Delivery Rate 09/26 619 98.5 93 20 120/68 94 Room Air 09/24 2148 99.0 86 18 100/70 92 Room Air 09/25 2011 118/70 09/24 1818 Room Air 09/24 1354 97.5 92 18 124/64 93 Room Air Intake & Output 09/25 1600 04/ 0800 04/ 0000 Intake Total 1280 780 Output Total 750 900 Balance 530 -120 Intake, IV 800 300 Intake, Oral 480 480 Output, Urine 750 900 Physical Exam General Appearance: well developed/nourished, no apparent distress, alert, awake , moderate distress Head: atraumatic, normal appearance Respiratory: normal breath sounds, chest non-tender, no respiratory distress Cardiovascular: regular rate/rhythm Gastrointestinal: normal bowel sounds, soft, non-tender Extremities: normal inspection, no edema Last 24 Hrs of Labs/Jon: No labs Assessment/Plan Assessment/Plan is a 57 yo man with PMHx. of CVA, GERD, asthma, BPH, chronic back pain, disc herniation, osteoarthritis, sciatica, spinal stenosis, insomnia presented to [facility] for a revision laminectomy at L5-S1. He got a procedure today which is described by the surgeon as Lumbosacral inspection of fusion mass L5-S1 laminectomies L5-S1 removal of hardware pedicle screws L5-S1. Placement of 4 pedicle screws bilaterally L5-S1. Lateral intertransverse process fusion with locally harvested bone L5-S1. Use of fluoroscopy. Medical team was consulted for comanagement. Assessment: #Status post revision laminectomy at L5-S1. #History of CVA #History of GERD #History of asthma #History of BPH Plan: * Pain management per surgical team * TRC/nebs * Monitor for any urinary retention Problem List: 1. History of CVA with residual deficit 2. Asthma 3. BPH (benign prostatic hyperplasia) 4. Status post laminectomy Consult Acknowledgment - Thank you for your consult request. Solis Ponce MD 09/24/17 4361: General Information and HPI Allergies/Medications Home Med List: Acetaminophen (Tylenol Extra Strength) 500 MG TABLET 1 TAB PO TID PRN TEMP>101 Albuterol Sulfate (Ventolin Hfa) 90 MCG HFA.AER.AD 2 PUF INH Q4P PRN SHORTNESS OF BREATH Atorvastatin Calcium 40 MG TABLET 40 MG PO 1700 cholesterol Bisacodyl (Dulcolax) 10 MG SUPP.RECT 1 SUP RC DAILY PRN CONSTIPATION Calcium Carbonate 500 MG CALCIUM (1,250 MG) TABLET 600 MG PO BID [facility] Cholecalciferol (Vitamin D3) 1,000 UNIT TABLET 1,000 IU PO DAILY [facility] Docusate Sodium (Colace) 100 MG CAPSULE 1 CAP PO BID PRN CONSTIPATION Esomeprazole (Nexium) 40 MG CAPSULE.DR 1 TAB PO DAILY GERD (Reported) Magnesium Hydroxide (Milk Of Magnesia) 400 MG/5 ML ORAL.SUSP 5 ML PO Q8P PRN CONSTIPATION Multivitamin (One Daily Multivitamin) 1 EACH TABLET 1 TAB PO DAILY [facility]AL [facility] Oxycodone HCl/Acetaminophen (Percocet 5-325 MG Tablet) 5 MG-325 MG TABLET 1-2 TAB PO Q4-6 PRN PAIN Tamsulosin HCl (Flomax) 0.4 MG CAP.ER.24H 0.4 MG PO DAILY bph Zolpidem Tartrate 10 MG TABLET 1 TAB PO NIGHTLY PRN SLEEP (Reported) Exam & Diagnostic Data Last 24 Hrs of Vital Signs/I&O Vital Signs Date Time Temp Pulse Resp B/P B/P Pulse O2 O2 Flow FiO2 Mean Ox Delivery Rate 09/24 2148 99.0 86 18 100/70 92 Room Air 09/25 2011 118/70 09/24 1819 Room Air 09/24 1354 97.5 92 18 124/64 93 Room Air Intake & Output 09/24 1600 09/24 0800 09/24 0000 Intake Total 1200 Output Total 600 Balance 600 Intake, IV 500 Intake, Oral 700 Number 0 Bowel Movements Output, Urine 600 Patient 189 lb Weight Weight Reported by Patient Measurement Method Assessment/Plan Consult Acknowledgment - Thank you for your consult request. Attending MD Review Statement Attending Statement Attending MD Statement: examined this patient, discuss w/resident/PA/BOSTON CUTTER, agreed w/resident/PA/BOSTON CUTTER, discussed with family, reviewed EMR data (avail), amended to note Attending Assessment/Plan: The patient is a 57 yo male with a h/o CVA GERD, asthma, BPH (urinary retention post Dilaudid), and chronic back pain secondary to disk herniation who is status post prior spinal fusion/PLDF L5-S1 with instrumentation and iliac crest bone graft 08/12/16 who presented with persistent back pain and for revision of posterior lumbar decompression fusion with removal of hardware. He was seen in room after procedure. He complained of mild post operative pain, however otherwise had no c/o chest pain, dyspnea, abd pain or other symptoms. Physical Exam: VS: as above Chest: clear Cor: RRR nl S1, S2 w/o murm Abd: BS+, softly distended, non-tender Ext: no edema Neuro: intact motor/sensory LE Labs/Tests- as above Impression/Plan: #Back Pain- s/p revision laminectomy as above. Plan: Post op care as per orthopedics. #H/O CVA- noted on chart, however no details available and patient drowsy. He is not on ASA or statin. Cause of CVA needs to be determined. No pre-op evaluation done. Plan: Will discuss with patient tomorrow and see if he knows details of history. #GERD- has been stable on Nexium. Plan: Substitute Omeprazole while here. #?Asthma- on chart. Lungs are clear at present. Plan: Follow lung exam, Albuterol MDI/TRC nebs prn, incentive spirometry. #BPH/Urinary Retention- had h/o severe retention due to narcotics (Dilaudid) in past. PA stated patient did not want to take Tamsulosin. He takes Jerry Carias as OP. Plan: Will follow urination. Consider Tamsulosin.
[2017-09-24 13:54] VITALS: BP 124/64
--- NOTE | 2017-09-24 14:47 | PN- Orthopedic ---
Subjective Subjective: POC: pt feels well. pain is tolerable. no radicular sx of neurologic sx of the LE. mild gerd symptoms. -hx of same. Objective Vital Signs and I&Os Vital Signs Date Time Temp Pulse Resp B/P B/P Pulse O2 O2 Flow FiO2 Mean Ox Delivery Rate 09/24 1354 97.5 92 18 124/64 93 Room Air Intake & Output 09/24 1600 09/24 0800 09/24 0000 09/23 1600 09/23 0800 09/23 0000 Intake Total 100 Output Total 0 Balance 100 Intake, IV 100 Intake, Oral 0 Number 0 Bowel Movements Output, Urine 0 Patient 189 lb 189 lb Weight Weight Reported by Patient Measurement Method Physical Exam: wdwn, aox3, nad heent-wnl no resp distress Back:dressing cdi. BLE nvi w sensation and motor grossly intact. pt able to size painter the room. Assessment/Plan Assessment/Plan POD1 sp removal of hardware pedicle screws L5-S1. Revision fusion, laminectomies L5-S1 secondary to Nonunion, loose hardware L5-S1 with radiculopathy. oob pain meds as needed ivf tonight regular home meds dressing change pod2 pain meds as needed. perioperative abx ALPS and early ambulation for dvt ppx regular home meds GI ppx w nexium- pts home med LE neuro checks Core Measures Venous Thromboembolism VTE Risk Factors Age>40 No Mechanical VTE Prophylaxis d/t N/A MechProphylax Ordered No VTE Pharm Prophylaxis d/t Other (surgical preferance)
--- NOTE | 2017-09-24 14:53 | RADIOLOGY REPORT ---
EXAMINATION: XR LUMBOSACRAL SPINE CLINICAL INFORMATION: L5-S1 fusion. COMPARISON: None. TECHNIQUE: C-arm fluoroscopic spot radiographs of the lower lumbosacral spine were obtained in frontal and lateral projection at the time of the procedure. FLUOROSCOPY TIME: 3 seconds. FINDINGS: Postsurgical changes of posterior spinal fusion noted at L5-S1 showing intact hardware and satisfactory alignment. IMPRESSION: Postsurgical changes at L5-S1. Full procedural detail as well as the report will be dictated by Dr. Herrera, the performing surgeon.
--- NOTE | 2017-09-24 15:10 | MRI REPORT ---
EXAMINATION: MR CERVICAL SPINE WITHOUT CONTRAST CLINICAL INFORMATION: Neck pain. COMPARISON: None. TECHNIQUE: MRI of the cervical spine without contrast was obtained using routine sequences. FINDINGS: VERTEBRAL BODIES AND PARASPINAL SOFT TISSUES: There is a reversal of the normal cervical lordosis. Anterior endplate spurring and mild disc space narrowing are evident at C5-C6 and C6-C7. There are no compression fractures or subluxations. The paraspinal soft tissues are normal. The imaged lung apices are clear. CERVICOMEDULLARY JUNCTION AND VISUALIZED POSTERIOR FOSSA: The craniovertebral junction and imaged portions of the brain parenchyma appear normal. No cord signal abnormality or syrinx is seen. SPINAL LEVELS: C2-C3: No significant disc pathology. No central canal stenosis or foraminal narrowing. C3-C4: Very small central disc protrusion. No central canal stenosis or foraminal narrowing. C4-C5: Small central disc protrusion. No central canal stenosis or foraminal narrowing. C5-C6: Mild loss of disc height with a mild disc bulge and endplate spurring. No central canal stenosis. Bulging disc mildly flattens the ventral thecal sac. Mild left foraminal narrowing. C6-C7: Mild posterior disc bulge with slight ventral thecal sac deformity. No central canal stenosis. Wtyq-iu-gisffvjg left foraminal narrowing due to uncovertebral joint spurring. C7-T1: Small left posterolateral disc protrusion abuts the exiting left C8 nerve root with mild left foraminal encroachment. IMPRESSION: Reversal of the normal cervical lordosis. Mild spondylitic changes, more so at C5-C6 and C6-C7 with shallow disc-osteophyte complexes. No central canal stenosis. Naik-tl-hjjjqlwo left foraminal narrowing at C6-C7. Small left posterolateral disc protrusion abutting the left C8 nerve root at C7-T1.
[2017-09-24 21:48] VITALS: BP 100/70
[2017-09-25 06:20] VITALS: BP 120/68
--- NOTE | 2017-09-25 08:41 | PN- Medicine Consult ---
Yenny Heath 09/25/17 0841: Assessment/PlanMedical Consult Assessment/Plan Assessment: is a 57 yo man with PMHx. of CVA, GERD, asthma, BPH, chronic back pain, disc herniation, osteoarthritis, sciatica, spinal stenosis, insomnia presented to [facility] for a revision laminectomy at L5-S1. He got a procedure today which is described by the surgeon as Lumbosacral inspection of fusion mass L5-S1 laminectomies L5-S1 removal of hardware pedicle screws L5-S1. Placement of 4 pedicle screws bilaterally L5-S1. Lateral intertransverse process fusion with locally harvested bone L5-S1. Use of fluoroscopy. Medical team was consulted for comanagement. Plan: Assessment: #Status post revision laminectomy at L5-S1. #History of CVA #History of GERD #History of asthma #History of BPH Plan: * Pain management per surgical team * Per surgery local wound care, dressing * TRC/nebs * Monitor for any urinary retention, consider Flomax * Consider managing GERD Sx with PPI (Omeprazol) * Continue neurocheck for LE * Patient on daily aspirin at home which is probably on hold for the surgery, will start him on statin as he mentioned that he had his chlesterol checked on July and found to be high. * Will check lipid panel Problem List: 1. Status post laminectomy 2. History of CVA with residual deficit 3. Asthma 4. BPH (benign prostatic hyperplasia) 5. GERD (gastroesophageal reflux disease) Subjective Subjective: Patient seen and examined, he has back pain which is well controlled on the current pain regimen, he denies chest pain or SOB. No urination till now, he feels he wants to void BUT he couldn't. However 10 minutes later patient had urinated (He received Flomax yesterday and this am) Vitals stable, no events overnight Discussed with surgical team, there is plan to take the patient back to OR on Thursday for his neck. Patient report pain with neck movement, however he denies any upper extrimity weakness, LOS or numbness, per surgical team MRI of cervical spine warrant surgical intervention. Offnote: Patient has preop. evaluation prior to this hospital stay through his PCP, he also has annual physical examination on July. He report that he had high cholesterol BUT he never been on statin. He has a Hx. 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 He is on ASA at home. Patient would like his lipid panel to be checked, to check the need for statin. Review of Systems Constitutional: Reports: no symptoms. EENTM: Reports: no symptoms. Cardiovascular: Reports: no symptoms. Respiratory: Reports: no symptoms. Gastrointestinal: Reports: no symptoms. Genitourinary: Reports: no symptoms. Musculoskeletal: Reports: back pain. Skin: Reports: no symptoms. Neurological/Psychological: Reports: no symptoms. Hematologic/Endocrine: Reports: no symptoms. Immunologic/Allergic: Reports: no symptoms. Objective Last 24 Hrs of Vital Signs/I&O Vital Signs Date Time Temp Pulse Resp B/P B/P Pulse O2 O2 Flow FiO2 Mean Ox Delivery Rate 09/25 0838 93 120/68 09/25 0620 98.5 93 20 120/68 94 Room Air 09/24 2148 99.0 86 18 100/70 92 Room Air 09/25 2011 118/70 09/24 1819 Room Air 09/24 1354 97.5 92 18 124/64 93 Room Air Intake & Output 09/25 1600 09/25 0800 09/25 0000 Intake Total 1280 780 Output Total 750 900 Balance 530 -120 Intake, IV 800 300 Intake, Oral 480 480 Output, Urine 750 900 Physical Exam General Appearance: well developed/nourished, no apparent distress, alert, awake , comfortable Neck: normal inspection, supple Cardiovascular: regular rate/rhythm, normal peripheral pulses Respiratory: normal breath sounds, chest non-tender, no respiratory distress Abdomen: normal bowel sounds, soft, non-tender, no organomegaly Extremities: normal inspection, normal capillary refill, normal range of motion, no edema Current Medications: Current Medications Sig/Roxana Start time Last Medication Dose Route Stop Time Status Admin Acetaminophen 650 MG Q4P PRN 09/24 1100 AC PO Albuterol Sulfate 2 PUF Q4P PRN 09/24 1830 AC INH Bisacodyl 10 MG DAILY NEEDED PRN 09/24 1100 AC ME Calcium 600 MG BID 09/24 2200 AC /05 PO 2159 Cefazolin Sodium 1,000 MG Q8H 09/25 0300 AC / IV 09/25 1101 0231 Cefazolin Sodium 1,000 MG IQ8 09/24 1600 DC 09/24 IV 09/25 0801 1842 Cefazolin Sodium 2,000 MG ONCE 09/24 0000 DC IV 09/24 2359 Cholecalciferol 1,000 IU DAILY 09/25 1000 AC 09/25 PO 0837 Docusate Sodium 100 MG TID 09/24 1600 AC 09/25 PO 0837 Lactated Ringer's 1,000 ML Q10H 09/24 1115 AC 09/25 IV 0249 Lorazepam 0.5 MG Q4P PRN 09/24 1130 AC PO 10/01 1129 Magnesium Hydroxide 30 ML Q8P PRN 09/24 1115 AC PO Morphine Sulfate 1 MG Q3P PRN 09/24 1100 AC IV Multivitamins 1 TAB DAILY 09/25 1000 AC 09/25 Therapeutic PO 0837 Non-Formulary 0 SEE ADMIN CRITERIA 09/24 1430 UNV Medication ANY Omeprazole 40 MG DAILY AC 09/25 0700 CAN PO Omeprazole 40 MG ONCE ONE 09/24 1415 CAN PO 09/24 1416 Ondansetron HCl 4 MG Q6P PRN 09/24 1100 AC IV Oxycodone/ 1 TAB Q4P PRN 09/24 1100 AC Acetaminophen PO Oxycodone/ 2 TAB Q4P PRN 09/24 1100 AC 09/25 Acetaminophen PO 0838 Tamsulosin HCl 0.4 MG DAILY 09/25 1000 AC 09/25 PO 0838 Tamsulosin HCl 0.4 MG ONCE ONE 09/24 2014 DC 09/24 PO 09/24 Trimethobenzamide HCl 200 MG Q6P PRN 09/24 1100 AC IM Zolpidem Tartrate 10 MG AT BEDTIME PRN 09/24 1615 AC 09/24 PO 2317 Results Last 24 Hrs Lab/Jon Results: Labs at 09/23/2017 with no fignificant finding (CBC, BEP AND UA in the chart) UA from yesterday is also non-significant Solis Ponce MD 09/25/17 2247: Attending MD Review Statement Attending Sign Off Attending Cosign Statement: I have: examined this patient, reviewed aval EMR data, discussd w/resident/PA/ ELEVATOR CONSTRUCTOR HYDRAULIC, agreed w/resident/PA/ELEVATOR CONSTRUCTOR HYDRAULIC, amended to note. Other Findings: The patient was seen and discussed with house staff. Agree with the plan of care as outlined. For more surgery Thursday 09/28.
[2017-09-25 13:58] VITALS: BP 114/68
[2017-09-25] MEDS ORDERED: VENTOLIN HFA18 GM INH (18:57)
[2017-09-25] MEDS ORDERED: FLOMAX0.4 M1 PO (18:57)
[2017-09-25] MEDS ORDERED: ATORVASTATIN CA40 M1 PO (18:57)
[2017-09-25 21:09] VITALS: BP 118/80
[2017-09-26 05:54] VITALS: BP 114/66
--- NOTE | 2017-09-26 12:31 | PN- Orthopedic ---
Subjective Subjective: Patient was seen by Dr. Herrera and MERON Rubio yesterday. They walked to the patient through the hallways and a note was handwritten in the patient's chart. He is doing well today. Tolerating a diet. Passing flatus, but no BM as of yet. He is trying to reduce narcotic use and is using Tylenol for pain. He does admit to some muscle spasms in his lower back. Otherwise ambulating independently in his room and in the hallways. Patient denies headache, dizziness, chest pain, shortness of breath, radicular pain, numbness, or weakness. Objective Vital Signs and I&Os Vital Signs Date Time Temp Pulse Resp B/P B/P Pulse O2 O2 Flow FiO2 Mean Ox Delivery Rate 09/26 0554 99.0 88 20 114/66 92 09/25 2109 98.6 89 18 118/80 92 Room Air 09/25 1358 98.6 97 18 114/68 93 Room Air Intake & Output 09/26 1600 09/26 0800 09/26 0000 09/25 1600 09/25 0800 09/25 0000 Intake Total 450 767 753 2458 780 Output Total 800 1125 900 750 900 Balance -350 -675 85 530 -120 Intake, IV 145 800 300 Intake, Oral 450 450 840 480 480 Output, Urine 800 1125 900 750 900 Physical Exam: Gen.: Patient is awake and alert. No acute distress. Cardiac: Regular Pulmonary: Lungs are bilaterally. Extremities: Dressing is clean, dry, and intact. There is no surrounding erythema, fluctuance, or ecchymosis appreciated. Lower extremities extremity sensation is intact and tenderness is appreciated. Strength of dorsiflexion and plantarflexion and knee flexion/extension are 5 out of 5. Results Last 48 Hours of Labs: Laboratory Tests 09/26 0559 Chemistry Triglycerides (<150 mg/dL) 239 H Cholesterol (< 200 MG/DL) 176 LDL Cholesterol, Calc (65 - 129 mg/dL) 90 HDL Cholesterol (40 - 60 mg/dL) 39 L Cholesterol/HDL Ratio (0.00 - 4.88 %) 5 H Assessment/Plan Assessment/Plan Patient is a 57-year-old male, who is now postoperative day #2 status post L5 through S1 revision laminectomy with fusion. He experienced urinary retention yesterday, which has since resolved. He is passing flatus but still awaiting BM. Plan: -Continue Tylenol or Percocet as needed for pain. -Continue frequent ambulation. -Continue bowel regimen and prune juice. -Continue Flomax for postop urinary retention. -Patient has been cleared by Dr. Javier Hurley for discharge back to the hot today. Core Measures Venous Thromboembolism VTE Risk Factors Age>40 No Mechanical VTE Prophylaxis d/t N/A MechProphylax Ordered No VTE Pharm Prophylaxis d/t Other (surgical preferance)
--- NOTE | 2017-09-26 12:36 | Surg Short-stay <48hrs Dis Sum ---
Visit Information Visit Dates Admission Date: 09/24/17 Discharge Date: 09/26/17 Surgical Short Stay DC Summary Admission Diagnosis: Nonunion loose hardware L5-S1 with radiculopathy. Final Diagnosis: Nonunion loose hardware L5-S1 with radiculopathy, postop urinary retention Procedure(s): Lumbosacral inspection of fusion mass L5-S1 laminectomies L5-S1 removal of hardware pedicle screws L5-S1. Placement of 4 pedicle screws bilaterally L5-S1. Lateral intertransverse process fusion with locally harvested bone L5-S1. Summary/Significant Findings: Shubham is a 57-year-old gentleman who is complaining of progressively worsening bilateral low back pain that is worse when standing for prolonged periods. He is status post posterior lumbar decompression and fusion L5-S1 with instrumentation from July,. 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 Shubham states his pain is worse in the morning upon awakening and he does occasionally experience right leg numbness and pain in his posterior thigh and into his foot with cramping. He denies any weakness in his lower extremities nor any bowel or bladder changes. He does rate his pain between a 5-7/10 in intensity. Due to the fact that Shubham's symptoms are not improving, and with his CT scan findings, he wants nothing more to do with nonsurgical treatment. He presented to for revision posterior lumbar decompression and fusion with removal of hardware, inspection of fusion mass, revision laminectomy at L5-S1, and possible reinstrumentation on 09/24/2017. He tolerated the procedure well and was transferred to the general medical floor postoperatively in stable condition. He experienced postoperative urinary retention, which resolved after being started on Flomax. At the time of discharge, vitals were stable, wound was clean and intact, patient was passing flatus and tolerating food, and ambulating independently. Condition at Discharge: Stable Discharge Disposition: home or self care Discharge instructions provided to patient/family: Yes Post discharge follow-up plan: See attached instructions from Dr. Herrera.
[2017-09-26 14:23] VITALS: BP 110/68
--- NOTE | 2017-09-26 14:43 | PN- Att Addend ---
Attending Addendum Attending Brief Note Patient seen and examined. Plan of care discussed with the medical team and the patient. Available lab work and radiology test reports were reviewed. Patient sitting up in bed without any distress. Complains of for mild to moderate lower back pain otherwise denies any difficulty breathing fever chills nausea vomiting. His appetite is fair and he does not upon difficulty with eating or drinking. Exam: General: Patient awake alert oriented without any distress CVS: S1 plus S2 without any murmur or gallops Chest: Few scattered crepitation without any wheeze. There is no respiratory distress. Abdomen: Soft non-tender, bowel sound present, no guarding or rebound TELLER HEAD: Awake alert oriented without any focal neuro deficit and follows commands appropriately Extremities: No edema; no clubbing or cyanosis noted Assessment * History of CVA * History of GERD * History of BPH * chronic back pain status post lumbar surgery with removal of hardware Plan Continue current regimen Patient is stable for discharge Current Medications Sig/Roxana Start time Last Medication Dose Route Stop Time Status Admin Acetaminophen 650 MG .STK-MED ONE 09/26 0417 DC PO 09/26 0418 Acetaminophen 650 MG .STK-MED ONE 09/25 1825 DC PO 09/25 1826 Acetaminophen 650 MG Q4P PRN 09/24 1100 AC 09/26 PO 1103 Albuterol Sulfate 2 PUF Q4P PRN 09/24 1830 AC 09/25 INH 1247 Atorvastatin Calcium 40 MG 1700 09/25 1700 AC 09/25 PO 1645 Bisacodyl 10 MG DAILY NEEDED PRN 09/24 1100 AC CO Calcium 600 MG BID 09/24 2200 AC 09/26 PO 0830 Cholecalciferol 1,000 IU DAILY 09/25 1000 AC 09/26 PO 0830 Docusate Sodium 100 MG TID 09/24 1600 AC 09/26 PO 0830 Lorazepam 0.5 MG Q4P PRN 09/24 1130 AC PO 10/01 1129 Magnesium Hydroxide 30 ML ONE ONE 09/25 1715 DC 09/25 PO 09/25 1716 1805 Magnesium Hydroxide 30 ML Q8P PRN 09/24 1115 AC PO Morphine Sulfate 1 MG Q3P PRN 09/24 1100 AC IV Multivitamins 1 TAB DAILY 09/25 1000 AC 09/26 Therapeutic PO 0830 Non-Formulary 0 SEE ADMIN CRITERIA 09/24 1430 DC Medication ANY Ondansetron HCl 4 MG Q6P PRN 09/24 1100 AC IV Oxycodone/ 1 TAB Q4P PRN 09/24 1100 AC Acetaminophen PO Oxycodone/ 2 TAB Q4P PRN 09/24 1100 AC 09/26 Acetaminophen PO 0736 Tamsulosin HCl 0.4 MG DAILY 09/25 1000 AC 09/26 PO 0830 Trimethobenzamide HCl 200 MG Q6P PRN 09/24 1100 AC IM Zolpidem Tartrate 10 MG AT BEDTIME PRN 09/24 1615 AC 09/24 PO 2317 Laboratory Tests 09/26/17 0559: Triglycerides 239 H, Cholesterol 176, LDL Cholesterol, Calc 90, HDL Cholesterol 39 L, Cholesterol/HDL Ratio 5 H 09/24/17 0640: Urine Color YEL, Urine Clarity CLEAR, Urine pH 6.0, Ur Specific Reedy >= 1.030 , Urine Protein NEG, Urine Ketones NEG, Urine Nitrite NEG, Urine Bilirubin NEG, Urine Urobilinogen 0.2, Ur Leukocyte Esterase NEG, Ur Microscopic EXAM NOT REQUIRED, Urine Hemoglobin NEG, Urine Glucose NEG Vital Signs Date Time Temp Pulse Resp B/P B/P Pulse O2 O2 Flow FiO2 Mean Ox Delivery Rate 09/26 1423 98.2 102 20 110/68 93 Room Air 09/26 0554 99.0 88 20 114/66 92 09/25 2109 98.6 89 18 118/80 92 Room Air Intake & Output 09/26 1600 09/26 0800 09/26 0000 Intake Total 710 450 450 Output Total 940 266 4383 Balance -90 -350 -675 Intake, IV 10 Intake, Oral 700 450 450 Number 0 Bowel Movements Output, Urine 097 098 9184
== END 2017-09-26 19:24 | DRG 460 ==
LOC: SDA 01:06 → ENRESERV 12:00 → 2NB 13:53 → ENPENDDIS 09-26 12:52 → ENTRNSPT 09-26 19:02 → EDTRNSPTSTS 09-26 19:13 → 2NB 09-26 19:24 → CMPTRNSPT 09-26 19:42
PROVIDERS: Student in an Organized Health Care Education/Training Program
PROC: 0SP304Z Removal of Internal Fixation Device from Lumbosacral Joint, Open Approach (ICD-10-PCS; principal; 2017-09-24)
PROC: 0SG3071 Fusion of Lumbosacral Joint with Autologous Tissue Substitute, Posterior Approach, Posterior Column, Open Approach (ICD-10-PCS; principal; 2017-09-24)
PROC: 0QB10ZZ Excision of Sacrum, Open Approach (ICD-10-PCS; principal; 2017-09-24)
PROC: 0QB00ZZ Excision of Lumbar Vertebra, Open Approach (ICD-10-PCS; principal; 2017-09-24)
DX: M96.0 Pseudarthrosis after fusion or arthrodesis (principal); I69.354 Hemiplegia and hemiparesis following cerebral infarction affecting left non-dominant side; M54.17 Radiculopathy, lumbosacral region; J45.909 Unspecified asthma, uncomplicated; K21.9 Gastro-esophageal reflux disease without esophagitis; M25.80 Other specified joint disorders, unspecified joint; Y83.8 Other surgical procedures as the cause of abnormal reaction of the patient, or of later complication, without mention of misadventure at the time of the procedure; N40.1 Benign prostatic hyperplasia with lower urinary tract symptoms; R33.8 Other retention of urine; Z91.018 Allergy to other foods; Z88.8 Allergy status to other drugs, medicaments and biological substances; Z87.891 Personal history of nicotine dependence
CPT/HCPCS: 2NBP; 72141; 36415; 72100; 81003; C1713; J0131; J0690; J2405; J3250; J3490; J7120

== ENCOUNTER 2017-10-23 01:42 | Inpatient (IN) | payer OTHER ==
[~2017-10-23] VITALS: Ht 170.2 cm; Wt 88.0 kg
[~2017-10-23 01:42] MED LIST changes: +AMBIEN10 M1 PO; +ATORVASTATIN CA40 M1 PO; +COLACE100 M1 PO; +DULCOLAX10 M1 RC; +FLOMAX0.4 M1 PO; +OS-CAL 500+D31 EAC1 PO; +SAW PALMETTO160 M2; +TYLENOL EXTRA500 M2 PO; +TYLENOL325 M1; +VENTOLIN HFA18 GM INH
--- NOTE | 2017-10-23 15:16 | Operative Report ---
Operative/Inv Procedure Report Surgery Date: 10/23/17 Name of Procedure: Posterior cervical discectomy and fusion C5 6 7 interbody fusion with interdiscal cage and autologous iliac crest C5 6 7. Anterior plate fixation C5 through C7. Harvesting of morselized bone graft left anterior iliac crest. Reconstruction of iliac crest site with Master graft. Use of fluoroscopy. Pre-Operative Diagnosis: HNP and kyphosis C5 6 C6 7 Post-Operative Diagnosis: Osteoporosis Estimated Blood Loss: less than 50ml Surgeon/Anode Crew Supervisor: Javier EDEN,Martín Mosher M.D. Anesthesia: general endotracheal tube Operative/Procedure Note Note: After adequate general anesthesia was achieved the patient was placed in the supine position with the head turned left and the shoulders taped to the side. The right anterior cervical region and left anterior iliac crest was sterile prepped and draped. An incision was made on the right side of the neck with the scalpel in line with the skin crease. The dissection was carried through the platysma. A blunt dissection was carried medial to the neurovascular bundle lateral to the visceral structures to the midline where needle was placed within the C5 6 disc space and x-ray showed appropriate level the deep retractors were placed with direct visualization of the esophagus. The bridging bone at both disc spaces were debrided with the high-speed bur and then the curettes and disc rongeurs were used to perform the discectomy at C5 6 and C6 7. The dissection was carried through the annulus and posterior longitudinal ligament at both levels. There is significant bone formation causing some foraminal stenosis on the right side. An incision made over the left anterior iliac crest and a subperiosteal dissection was carried medial and lateral to the crest. The oscillating saw was used to collect 2 tricortical bone grafts the wound was irrigated packed with Master graft covered with Gelfoam and closed in layers with absorbable suture with nylon in the skin. Time of harvesting the bone graft and perform the surgery it was obvious that the patient suffered from significant osteoporosis. After preparation of the endplates of the high-speed bur at both levels the trials were used to select interdiscal cage sizes. Cages were packed with cancellus bone graft and tamped into position well away from the neural canal and checked with fluoroscopy. An anterior plate was then applied with reasonable purchase and all 6 screws. Wound was irrigated fluoroscopy checked position which was found to be appropriate. Wound was again irrigated and a closure the platysma was performed with absorbable suture the skin was closed with subcuticular nylon. Sterile dressings were applied the patient was transferred to the stretcher in a cervical collar. Findings: Osteoporosis
[2017-10-23] MEDS ORDERED: VITAMIN D31000 UNI2 PO (16:05)
[2017-10-23] MEDS ORDERED: MULTIVITAMINS1 EAC9 PO (16:05)
[2017-10-23] MEDS ORDERED: PERCOCET 5-3251 EACH PO (16:05)
[2017-10-23] MEDS ORDERED: MILK OF MA400 MG/52 PO (16:05)
[2017-10-23] MEDS ORDERED: DULCOLAX10 M1 RC (16:05)
[2017-10-23 18:10] VITALS: BP 132/86
--- NOTE | 2017-10-23 19:06 | RADIOLOGY REPORT ---
EXAMINATION: CR CERVICAL SPINE/INTRAOPERATIVE FLUOROSCOPY CLINICAL INDICATION: ACD 5 through 7 fusion in OR COMPARISON: MRI scan of the cervical spine dated 09/24/2017. TECHNIQUE/FINDINGS: Fluoroscopic equipment was dedicated to the operating room for the performance of an intraoperative procedure. Several (7) spot films were acquired and are archived in PACS. Please refer to operative notes for procedural detail. FLUOROSCOPY TIME: 19 seconds. IMPRESSION: Administrative dictation for intraoperative fluoroscopy and image archiving in PACS. Please refer to operative notes for details.
--- NOTE | 2017-10-23 20:53 | PN- Neurosurgical ---
Subjective Subjective: Patient doing well since arriving to the floor. Pain controlled. Perdomo in place. Tolerating clears. No other issues or complaints. Objective Vital Signs and I&Os Vital Signs Date Time Temp Pulse Resp B/P B/P Pulse O2 O2 Flow FiO2 Mean Ox Delivery Rate 10/23 1810 97.8 71 18 132/86 96 Room Air Intake & Output 10/23 1600 10/23 0800 / 0000 10/22 1600 10/22 0800 10/22 0000 Intake Total Output Total Balance Patient 189 lb Weight Physical Exam: General: A, A, NAD Neck: Cervical collar in place, dsg is c/d/i Extremities: equal strength b/l, neurovascular intact, Left Hip dsg c/d/i Current Medications: Current Medications Sig/Roxana Start time Last Medication Dose Route Stop Time Status Admin Acetaminophen 650 MG Q4P PRN 10/23 1545 AC PO Acetaminophen 1,000 MG .STK-MED ONE 10/23 636 DC IV 10/23 0638 Albuterol Sulfate 2 PUF Q4P PRN 10/23 1545 AC INH Atorvastatin Calcium 40 MG 1700 10/24 1700 AC PO Bisacodyl 10 MG DAILY NEEDED PRN 10/23 1545 AC [place] Calcium/Vitamin D 1 TAB DAILY 10/24 0900 AC PO Cefazolin Sodium 1,000 MG Q8H 10/23 2100 AC IV 10/24 1301 Cefazolin Sodium 1,000 MG IQ8 10/23 1600 DC IV 10/24 0801 Cefazolin Sodium 2,000 MG ONCE 10/23 0000 NR IV 10/23 2359 Cholecalciferol 1,000 IU DAILY 10/24 0900 AC PO Dexmedetomidine HCl 200 MCG .STK-MED ONE 10/23 1234 DC IV 10/23 1235 Docusate Sodium 100 MG BID 10/23 2100 AC PO Docusate Sodium 100 MG BID PRN 10/23 1545 CAN PO Fentanyl Citrate 100 MCG .STK-MED ONE 10/23 636 DC IM 10/23 06 Hydromorphone HCl 2 MG .STK-MED ONE 10/23 636 DC IM 10/23 06 Lactated Ringer's 1,000 ML Q10H 10/23 1600 AC 10/23 IV 1823 Magnesium Hydroxide 30 ML Q8P PRN 10/23 1600 AC PO Midazolam HCl 2 MG .STK-MED ONE 10/23 637 DC IM 10/23 0639 Morphine Sulfate 1 MG Q3P PRN 10/23 1545 AC 10/23 IV 1825 Multivitamins 1 TAB DAILY 10/24 0900 AC PO Omeprazole 40 MG DAILY AC 10/24 0700 AC PO Ondansetron HCl 4 MG Q6P PRN 10/23 1545 AC IV Oxycodone/ 1 TAB Q4P PRN 10/23 1545 AC Acetaminophen PO Oxycodone/ 2 TAB Q4P PRN 10/23 1545 AC Acetaminophen PO Tamsulosin HCl 0.4 MG DAILY 10/23 1543 AC PO Trimethobenzamide HCl 200 MG Q6P PRN 10/23 1545 AC IM Assessment/Plan Assessment/Plan This is a 57 yo male who is POD#0 from an acdf c5-7 with iliac crest bone graft, doing well. Ambulate/PT eval tomorrow Pain control GI/DVT Px Home meds Continue arun, pt requesting to keep in until Thursday at midnight Cervical Collar Regular Diet Neurovascular checks Will follow Will d/w Dr. Herrera Core Measures Venous Thromboembolism VTE Risk Factors No risk factors No Mechanical VTE Prophylaxis d/t N/A MechProphylax Ordered No VTE Pharm Prophylaxis d/t NA PharmProphylax ordered
[2017-10-23 21:32] VITALS: BP 136/90
[2017-10-24 05:46] VITALS: BP 130/76
--- NOTE | 2017-10-24 08:17 | PN- Orthopedic ---
See Addendum Subjective Subjective: feeling ok, minimal oob. hungry. no cp/sob. some nausea last ngiht, now resolved. pain controlled. concerned about removing dias, hx postop retention. asking about home dose asa. Objective Vital Signs and I&Os Vital Signs Date Time Temp Pulse Resp B/P B/P Pulse O2 O2 Flow FiO2 Mean Ox Delivery Rate 10/24 545 98.1 88 20 130/76 94 Room Air 10/23 2154 Room Air 10/24 2131 97.5 69 20 136/90 93 10/23 1810 97.8 71 18 132/86 96 Room Air Intake & Output 10/24 1600 10/24 0800 10/24 0000 10/23 1600 10/23 0800 10/23 0000 Intake Total 1090 540 Output Total 1200 350 Balance -110 190 Intake, IV 850 300 Intake, Oral 240 240 Output, Urine 1200 350 Patient 194 lb Weight Weight Bed scale Measurement Method Physical Exam: gen- nad card-s1s2 rrr pulm- ctab abd- soft nt ext- calves soft nt bl, feet warm, gross motor/snesate intact 4 extremities neck- soft collar in place, incision w cdi dressing, ttp at incision Assessment/Plan Assessment/Plan A- POD1 sp acdf, awaiting oob/pt eval, with hx postop urinary retention with dias in place, stable. P- flomax now. ?never received ordered dose last night dc dias at noon prn pain meds oob, ambulate, pt eval soft collar pt concerned about his home dose aspirin- will dw attending dc planning Core Measures Venous Thromboembolism VTE Risk Factors No risk factors No Mechanical VTE Prophylaxis d/t N/A MechProphylax Ordered No VTE Pharm Prophylaxis d/t NA PharmProphylax ordered
--- NOTE | 2017-10-24 13:03 | Surg Short-stay <48hrs Dis Sum ---
Visit Information Visit Dates Admission Date: 10/23/17 Discharge Date: 10/25/17 Surgical Short Stay DC Summary Admission Diagnosis: HNP and kyphosis C5-6 C6-7 Final Diagnosis: HNP and kyphosis C5-6 C6-7, Osteoporosis, s/p Anterior cervical discectomy and fusion C5-C7. Harvesting of morselized bone graft left anterior iliac crest. Reconstruction of iliac crest site with Master graft. Procedure(s): Anterior cervical discectomy and fusion C5-C7. Harvesting of morselized bone graft left anterior iliac crest. Reconstruction of iliac crest site with Master graft. Summary/Significant Findings: Admitted for elective acdf C5-C7, with harvesting of morselized bone graft left anterior iliac crest, on 10/23/17 by . Recovered well on surgical floor. Stable for DC from hospital per Dr. Herrera. Refer to daily orthospine notes for further details. Condition at Discharge: stable Discharge Disposition: home or self care Discharge instructions provided to patient/family: Yes Post discharge follow-up plan: Call to be seen in 1-2 weeks
[2017-10-24 14:08] VITALS: BP 148/72
[2017-10-24 22:13] VITALS: BP 136/80
[2017-10-25 07:02] VITALS: BP 126/74
--- NOTE | 2017-10-25 08:57 | PN- Orthopedic ---
Subjective Subjective: Reports chest pressure, worse with breathing. "Feels like an elephant is sitting on my chest", which he reports has been ongoing since surgery. He denies cardiac history, but does report history of stroke. Out of bed to chair without difficulty. Denies shortness of breath. Voiding without difficulty s/p dias removal. Tolerating diet, with slight discomfort swallowing this morning. No bm yet, but getting medication to assist with this. Objective Vital Signs and I&Os Vital Signs Date Time Temp Pulse Resp B/P B/P Pulse O2 O2 Flow FiO2 Mean Ox Delivery Rate 10/25 0832 70 126/74 10/25 0702 98.1 82 20 126/74 93 Room Air 10/24 2213 98.0 80 18 136/80 94 Room Air 10/24 1408 98.0 74 18 148/72 94 Room Air Intake & Output 10/25 1600 10/25 0800 10/25 0000 10/24 1600 10/24 0810/24 0000 Intake Total 1200 1075 1090 540 Output Total 950 1200 2900 1200 350 Balance -950 0 -1825 -110 190 Intake, IV 175 850 300 Intake, Oral 1200 900 240 240 Number 0 Bowel Movements Output, Urine 950 1200 2900 1200 350 Patient 194 lb Weight Weight Bed scale Measurement Method Physical Exam: General - alert & oriented x 3. out of bed to chair. no acute distress. Neck - soft cervical collar in place. incision well approximated with suture observed. no erythema or exudates. no hematoma. no drains. Lungs - clear bilaterally. no w/r/r. Cardiac - s1s2. reg. Abdomen - soft. nontender. Extremities - warm bilaterally. left hip dressing changed. incision well approximated with suture in place. no erythema or exudates. expected tenderness. calves soft and nontender b/l. Current Medications: Current Medications Sig/Roxana Start time Last Medication Dose Route Stop Time Status Admin Acetaminophen 650 MG Q4P PRN 10/23 1545 AC PO Albuterol Sulfate 2 PUF Q4P PRN 10/23 1545 AC INH Aspirin 325 MG .STK-MED ONE 10/24 0856 DC PO 10/24 0857 Aspirin Buffered 325 MG DAILY 10/24 0900 AC 10/25 PO 0834 Atorvastatin Calcium 40 MG 1700 10/24 1700 AC 10/24 PO 1617 Bisacodyl 10 MG DAILY NEEDED PRN 10/23 1545 AC [place] Calcium/Vitamin D 1 TAB DAILY 10/24 0900 AC 10/25 PO 0828 Cefazolin Sodium 1,000 MG Q8H 10/23 2100 DC 10/24 IV 10/24 1301 1347 Cholecalciferol 1,000 IU DAILY 10/24 0900 AC 10/25 PO 0834 Diphenhydramine HCl 50 MG .STK-MED ONE 10/24 2033 DC IM 10/24 2034 Diphenhydramine HCl 50 MG AT BEDTIME PRN 10/23 2130 AC 10/24 IV 2254 Docusate Sodium 100 MG BID 10/23 2100 AC 10/25 PO 0833 Magnesium Hydroxide 30 ML Q8P PRN 10/23 1600 AC 10/25 PO 0531 Morphine Sulfate 1 MG Q3P PRN 10/23 1545 AC 10/23 IV 2117 Multivitamins 1 TAB DAILY 10/24 0900 AC 10/25 PO 0833 Omeprazole 40 MG DAILY AC 10/24 0700 AC 10/25 PO 0413 Ondansetron HCl 4 MG Q6P PRN 10/23 1545 AC 10/23 IV 2117 Oxycodone/ 1 TAB Q4P PRN 10/23 1545 AC Acetaminophen PO Oxycodone/ 2 TAB Q4P PRN 10/23 1545 AC 10/25 Acetaminophen PO 0413 Tamsulosin HCl 0.4 MG DAILY 10/23 1543 AC 10/25 PO 0832 Trimethobenzamide HCl 200 MG Q6P PRN 10/23 1545 AC IM Assessment/Plan Assessment/Plan This 57 year old male with hx cva, is POD#2 acdf c5-7 with icbg, currently reporting some chest pressure tolerating diet pain controlled will check ekg and labs to r/o cardiac source of chest pressure dressings changed. soft cervical collar in place asa 325 daily restarted oob/ambulating well d/c today as long as ekg and labs ok will d/w Core Measures Venous Thromboembolism VTE Risk Factors No risk factors No Mechanical VTE Prophylaxis d/t N/A MechProphylax Ordered No VTE Pharm Prophylaxis d/t NA PharmProphylax ordered
[2017-10-25 09:28] LABS: ABSOLUTE BASOPHIL COUNT 0 /CUMM (0.0-0.2); ABSOLUTE EOSINOPHIL COUNT 0.1 /CUMM (0.0-0.7); ABSOLUTE GRANULOCYTE CT 4.9 /CUMM (1.4-6.5); ABSOLUTE LYMPH COUNT 1.5 /CUMM (1.2-3.4); ABSOLUTE MONOCYTE COUNT 0.1 /CUMM (0.10-0.60); BASOPHIL % 0.1 % (0.0-2.0); EOSINOPHIL % 1.1 % (0-5); GRANULOCYTE % 74.7 % (42.2-75.2); HEMATOCRIT 38.4 % (42-52); MEAN CORPUSCULAR HGB 31.9 PG (27.0-31.0); MEAN CORPUSCULAR VOLUME 96.6 FL (80.0-94.0); MEAN PLATELET VOLUME 8.3 FL (7.4-10.4); PLATELET COUNT 195 /CUMM (130-400); RBC DISTRIBUTION WIDTH 12.8 % (11.5-14.5); RED BLOOD CELL CT 3.98 /CUMM (4.70-6.10); WHITE BLOOD CELL COUNT 6.6 /CUMM (4.8-10.8)
[2017-10-25 14:28] VITALS: BP 122/72
== END 2017-10-25 15:08 | DRG 472 ==
LOC: SDA 01:42 → CANRESERV 16:28 → ENRESERV 16:28 → ENTRNSPT 17:27 → EDTRNSPT 17:44 → EDTRNSPTSTS 17:44 → 2NB 17:47 → CMPTRNSPT 18:03 → ENTRNSPT 10-25 14:53 → EDTRNSPTSTS 10-25 15:01 → 2NB 10-25 15:08 → CMPTRNSPT 10-25 15:16
PROVIDERS: Physician Assistant
PROC: 0RB30ZZ Excision of Cervical Vertebral Disc, Open Approach (ICD-10-PCS; principal; 2017-10-23)
PROC: 0RG20A0 Fusion of 2 or more Cervical Vertebral Joints with Interbody Fusion Device, Anterior Approach, Anterior Column, Open Approach (ICD-10-PCS; 2017-10-23)
PROC: 0QB30ZZ Excision of Left Pelvic Bone, Open Approach (ICD-10-PCS; 2017-10-23)
DX: M50.23 Other cervical disc displacement, cervicothoracic region (principal); I69.351 Hemiplegia and hemiparesis following cerebral infarction affecting right dominant side; M48.02 Spinal stenosis, cervical region; M40.292 Other kyphosis, cervical region; J45.909 Unspecified asthma, uncomplicated; K21.9 Gastro-esophageal reflux disease without esophagitis; N40.0 Benign prostatic hyperplasia without lower urinary tract symptoms; G47.00 Insomnia, unspecified; Z87.891 Personal history of nicotine dependence; Z98.1 Arthrodesis status; Z79.82 Long term (current) use of aspirin
CPT/HCPCS: 2NBP; 72040; 82436; 87086; 88304; 93005; 93010; 97110-GO; 97116-GO; 97161-GP; C1713; J0131; J0690; J1200; J2270; J2405; J3490; J7120